=== PATIENT | female | born 1965 | race Caucasian/White ===

== ENCOUNTER 2016-11-01 22:48 | Inpatient (IN) | payer MEDICARE, MEDICAID ==
[~2016-11-01] VITALS: Ht 177.8 cm; Wt 81.2 kg
[~2016-11-01 22:48] MED LIST: ALBU1AER INH; ATEN100T7 PO; DICL50 PO; LANTUSP SQ; ORPH100T PO; PROM25TA5 PO; SPIRCAP INH; SYMB80AE INH; VALI10TA PO
[2016-11-01 22:50] VITALS: O2SAT 92
[2016-11-01 22:56] VITALS: BP 108/71; PULSE 85; RESP 14; TEMP 101.1; O2SAT 98
[2016-11-01] MEDS ORDERED: metroNIDAZOLE 500 MG INJ 100 ML IV STA (23:09)
[2016-11-01] MEDS ORDERED: SODIUM CHLOR 0.9% 1000 ML INJ 700 ML IV ONE (23:09)
[2016-11-01] MEDS ORDERED: AZTREONAM INJ 2,000 MG in SODIUM CHLORIDE 0.9% INJ 100 ML IV STA (23:09)
[2016-11-01] MEDS ORDERED: VANCOMYCIN INJ 1,000 MG in SODIUM CHLOR 0.9% 250 ML INJ 250 ML IV STA (23:09)
[2016-11-01] MEDS ORDERED: SODIUM CHLOR 0.9% 1000 ML INJ 1,000 ML IV ONE ×2 (23:09)
[2016-11-01 23:12] LABS: BLOOD GAS BASE EXCESS 3.7 mmol/L (-2-2); BLOOD GAS CARBOXYHEMOGLOBIN 2.7 % (0-4); BLOOD GAS HCO3 29 mmol/L (22-26); BLOOD GAS METHEMOGLOBIN 0.8 % (0-2); BLOOD GAS O2 HGB SATURATION 95 % (90-100); BLOOD GAS OXYGEN CONTENT 18.5 Vol % (12.0-20.0); BLOOD GAS PCO2 60 mmHg (38-42); BLOOD GAS PO2 112 mmHG (61-120); BLOOD GAS TOTAL HGB 13.8 G/DL (12.0-16.0); CRITICAL VALUE YES; TEMP CORR TO 98.6
[2016-11-01 23:13] LABS: DRAW SITE LT RADIAL; FIO2 100 %; LITER FLOW 15 L/M; NUMBER OF ARTERIAL PUNCTURES 1; OXYGEN DEVICE NONE REBREATHER; STAT YES; ULNAR PULSE PRESENT
[2016-11-01] MEDS ORDERED: methylPREDNISolone SOD SUCC 125 MG/2 ML VIAL IV PUSH ONE (23:15)
--- NOTE | 2016-11-01 23:18 | PD ---
HPI Chief Complaint: Altered Mental Status Time Seen by Provider: 23:03 Travel History International Travel<30 days: No Contact w/Intl Traveler<30days: No History of Present Illness HPI The patient is a 50 year old female who presents to the [facility] emergency department with a history of reportedly collapsing at work some time yesterday afternoon. The patient proceeded to come home at 4:30 PM and has been lying on the couch since then according to ambulance services. The patient 's called when he had difficulty awakening her. The patient was noted to have a blood sugar of 145. The patient had a decreased level of consciousness although she was responsive to painful stimulation and loudly calling her name. The patient quickly falls back to sleep. According to ambulance services the patient was oriented 2 with a GCS of 13 prior to arrival. The patient was noted to have a left bundle branch block which the patient does have a history of. The patient was noted to have an O2 saturation on room air of 72%. The patient was noted to have a systolic blood pressure of 76. The patient is noted to have a productive sounding cough. Prior to arrival the patient had IV access obtained and was given 800 mL of normal saline. Her systolic blood pressure then went up to 112. Patient was placed on a nonrebreather mask and her O2 saturation on arrival is 98% on nonrebreather. The patient is unable to provide any other significant history. She is not able to answer questions regarding review of systems. [facility] Past Medical History Narrative Medical The patient's past medical history is obtained from reviewing the electronic medical record and consists of a history of diabetes, COPD, 2 prior myocardial infarctions, history of tobacco use, history of hypertension, obesity, dyslipidemia, bipolar disorder, chronic back pain. Bipolar Disorder: Yes Cardiac Catheterization: Yes (x2) Cardiovascular Problems: Yes (HTN, ID) COPD: Yes Cerebrovascular Accident: Yes Diabetes: Yes Diminished Hearing: No Hypertension: Yes Psychiatric: Yes Respiratory: Yes (COPD) Tetanus Vaccination: Unknown ?: Not Menopausal: No : 4 Para: 2 Miscarriage: 1 Past Surgical History Narrative Surgical The patient's past surgical history is significant for an appendectomy, tonsillectomy, abdominal laparoscopy, facial reconstruction Social History Alcohol Use: No Tobacco Use: Yes (1 ppd) Substance Use: No Allergies-Medications (Allergen,Severity, Reaction): Coded Allergies: Baclofen (Verified Allergy, Severe, HIVES, BLISTERS, VOMITING, 11/01/16) Codeine (Verified Allergy, Severe, 11/01/16) Iodinated Contrast Media (Verified Allergy, Severe, 11/01/16) Tramadol (Verified Allergy, Severe, Hives, BLISTERS, 11/01/16) Iodine (Verified Allergy, Unknown, UNKNOWN REACTION, 11/01/16) Penicillin (Verified Allergy, Unknown, UNKNOWN REACTION, 11/01/16) Reported Meds & Prescriptions Reported Meds & Active Scripts Active Active Prescriptions or Reported Medications Unobtainable Review of Systems ROS Limitations: Clinical Condition, Poor Historian Except as stated in HPI: all other systems reviewed are Neg Respiratory: Positive: Cough Neurologic: Positive: Weakness (generalized weakness), Change in Mentation Physical Exam Narrative General: The patient is a well-developed well-nourished female, decreased level of consciousness on arrival, drowsy-appearing, arousable with loudly calling her name or any type of painful stimulation. Head and Neck exam: Head is normocephalic atraumatic. Eyes: Extra Reglan motion testing is unable to be accomplished in this patient that is not cooperative. Pupils are equal round and reactive to light. Nose: Midline septum with pink mucous membranes Mouth: Dentition unremarkable. Moist mucus membranes. Posterior oropharynx is not erythematous. No tonsillar hypertrophy. Uvula midline. Airway patent. Neck: No palpable lymphadenopathy. No nuchal rigidity. No thyromegaly. Cardiovascular: Sinus tachycardia in the low 100s without murmurs, gallops, or rubs. No pulse deficit to the extremities and simultaneous auscultation and palpation of her radial artery. Lungs: Decreased breath sounds in the left lower lung base, no wheezes, rhonchi, or crackles audible. Abdomen: Soft, without tenderness to palpation in all 4 quadrants of the abdomen. No guarding, rebound, or rigidity. Normal bowel sounds are audible. No tenderness on palpation of McBurney's point. Negative Wiley's sign. On examination of the patient's scan the patient is noted on the abdomen, waist band area to have urticaria. Extremities: No clubbing, cyanosis, or edema, except an area of interest, the left upper extremity. According to ambulance services this extremity was dependent while the patient was on the couch over the last greater than 12 hours. 2+ pulses in all 4 extremities. No calf tenderness on palpation. Back: No costovertebral angle tenderness to palpation. Neurologic Exam: This patient spontaneously moves all extremities with generalized weakness, however no focal weakness. The patient is uncooperative with a formal neurologic examination. The patient has no evidence of facial asymmetry. Skin Exam: Urticaria on the abdomen and developing on her arms. The patient is scratching her abdomen. Intact skin that is warm and dry. Data Data Last Documented VS Vital Signs Date Time Temp Pulse Resp B/P Pulse Ox O2 Delivery O2 Flow Rate FiO2 11/02/16 00:45 99.7 92 16 123/71 96 BiPAP 50 11/01/16 23:02 15 Orders Electrocardiogram (11/01/16 23:06) Complete Blood Count With Diff (11/01/16 23:) Comprehensive Metabolic Panel (11/01/16 23:06) Creatine Kinase (Cpk) (11/01/16 23:06) Ckmb (Isoenzyme) Profile (11/01/16 23:) Troponin I (11/01/16 23:) B-Type Natriuretic Peptide (11/01/16 23:06) Prothrombin Time / Inr (Pt) (11/01/16 23:06) Act Partial Throm Time (Ptt) (11/01/16 23:06) Arterial Blood Gas (Abg) (11/01/16 23:06) Blood Culture (11/01/16 23:06) C-Reactive Protein (Crp) (11/01/16 23:06) Lipase (11/01/16 23:06) Urinalysis - C+S If Indicated (11/01/16 23:) Magnesium (Mg) (11/01/16 23:06) Ammonia (11/01/16 23:06) Thyroid Stimulating Hormone (11/01/16 23:06) Chest, Single Ap (11/01/16 23:06) Ct Brain W/O Iv Contrast(Rout) (11/01/16 23:06) Iv Access Insert/Monitor (11/01/16 23:06) Ecg Monitoring (11/01/16 23:06) Oximetry (11/01/16 23:06) Blood Glucose (11/01/16 23:06) Ed Urine Pregnancytest Poc (11/01/16 23:06) Drug Screen, Random Urine (11/01/16 23:06) Alcohol (Ethanol) (11/01/16 23:06) Salicylates (Aspirin) (11/01/16 23:06) Tylenol (Acetaminophen) (11/01/16 23:06) Lactic Acid Sepsis Protocol (11/01/16 23:06) Methylprednisolone So Succ Inj (Solumedr (11/01/16 23:15) Sodium Chlor 0.9% 1000 Ml Inj (Ns 1000 M (11/01/16 23:09) Sodium Chlor 0.9% 1000 Ml Inj (Ns 1000 M (11/01/16 23:09) Sodium Chlor 0.9% 1000 Ml Inj (Ns 1000 M (11/01/16 23:09) Metronidazole 500 Mg Inj (Flagyl 500 Mg (11/01/16 23:09) Vancomycin Inj (Vancomycin Inj) (11/01/16 23:09) Aztreonam Inj (Azactam Inj) (11/01/16 23:09) Sodium Chloride 0.9% Flush (Ns Flush) (11/01/16 23:30) Methylprednisolone So Succ Inj (Solumedr (11/01/16 23:30) Albuterol-Ipratropium Neb (Duoneb Neb) (11/01/16 23:30) Resp Bipap / Cpap Non Invas Vt (11/01/16 23:18) Diphenhydramine Inj (Benadryl Inj) (11/01/16 23:30) Famotidine Inj (Pepcid Inj) (11/01/16 23:30) Epinephrine (1:1000) Inj (Adrenalin (1:1 (11/01/16 23:30) Urinary Catheter Insert/Apply (11/01/16 23:22) Urine Culture (11/01/16 23:10) CKMB (11/01/16 23:10) CKMB% (11/01/16 23:10) Admit Order (Ed Use Only) (11/02/16 01:16) Labs Laboratory Tests Test 11/01/16 11/01/16 22:59 23:10 Blood Gas Puncture Site LT RADIAL Blood Gas Patient Temperature 98.6 Blood Gas HCO3 29 mmol/L Blood Gas Base Excess 3.7 mmol/L Blood Gas Oxygen Saturation 95 % Arterial Blood pH 7.31 Arterial Blood Partial 60 mmHg Pressure CO2 Arterial Blood Partial 112 mmHG Pressure O2 Arterial Blood Oxygen Content 18.5 Vol % Arterial Blood 2.7 % Carboxyhemoglobin Arterial Blood Methemoglobin 0.8 % Blood Gas Hemoglobin 13.8 G/DL Oxygen Delivery Device NONE REBREATHER Blood Gas Liter Flow 15 L/M Blood Gas Inspired Oxygen 100 % Prothrombin Time 10.5 SEC Prothromb Time International 1.0 RATIO Ratio Activated Partial 27.6 SEC Thromboplast Time Lactic Acid Level 0.7 mmol/L Ammonia 23 MCMOL/L Salicylates Level 1.8 MG/DL Urine Opiates Screen POS Urine Barbiturates Screen NEG Urine Amphetamines Screen NEG Urine Benzodiazepines Screen POS Urine Cocaine Screen NEG Urine Cannabinoids Screen NEG White Blood Count 12.9 TH/MM3 Red Blood Count 4.86 MIL/MM3 Hemoglobin 14.4 GM/DL Hematocrit 45.2 % Mean Corpuscular Volume 93.0 FL Mean Corpuscular Hemoglobin 29.7 PG Mean Corpuscular Hemoglobin 31.9 % Concent Red Cell Distribution Width 13.6 % Platelet Count 176 TH/MM3 Mean Platelet Volume 10.6 FL Neutrophils (%) (Auto) 63.1 % Lymphocytes (%) (Auto) 26.1 % Monocytes (%) (Auto) 10.1 % Eosinophils (%) (Auto) 0.1 % Basophils (%) (Auto) 0.6 % Neutrophils # (Auto) 8.1 TH/MM3 Lymphocytes # (Auto) 3.4 TH/MM3 Monocytes # (Auto) 1.3 TH/MM3 Eosinophils # (Auto) 0.0 TH/MM3 Basophils # (Auto) 0.1 TH/MM3 CBC Comment DIFF FINAL Differential Comment Urine Color YELLOW Urine Turbidity HAZY Urine pH 5.5 Urine Specific [place] 1.021 Urine Protein 30 mg/dL Urine Glucose (UA) NEG mg/dL Urine Ketones NEG mg/dL Urine Occult Blood MOD Urine Nitrite NEG Urine Bilirubin NEG Urine Urobilinogen 2.0 MG/DL Urine Leukocyte Esterase LARGE Urine RBC 8 /hpf Urine WBC 56 /hpf Urine WBC Clumps OCC Urine Squamous Epithelial 5 /hpf Cells Urine Transitional Epithelial 1 /hpf Cells Urine Renal Epithelial Cells 1 /hpf Urine Bacteria MANY /hpf Urine Hyaline Casts 65 /lpf Urine Mucus MANY /lpf Microscopic Urinalysis Comment CULTURE INDICATED Sodium Level 144 MEQ/L Potassium Level 3.1 MEQ/L Chloride Level 105 MEQ/L Carbon Dioxide Level 30.6 MEQ/L Anion Gap 8 MEQ/L Blood Urea Nitrogen 43 MG/DL Creatinine 3.24 MG/DL Estimat Glomerular Filtration 15 ML/MIN Rate Random Glucose 107 MG/DL Calcium Level 9.0 MG/DL Magnesium Level 2.6 MG/DL Total Bilirubin 0.5 MG/DL Aspartate Amino Transf 129 U/L (AST/SGOT) Alanine Aminotransferase 30 U/L (ALT/SGPT) Alkaline Phosphatase 62 U/L Total Creatine Kinase 4453 U/L Creatine Kinase MB 10.9 NG/ML Creatine Kinase MB % 0.2 % Troponin I 0.09 NG/ML C-Reactive Protein 2.61 MG/DL B-Type Natriuretic Peptide 109 PG/ML Total Protein 7.2 GM/DL Albumin 3.3 GM/DL Lipase 65 U/L Thyroid Stimulating Hormone 0.480 uIU/ML 3rd Gen Acetaminophen Level LESS THAN 2.0 MCG/ML Ethyl Alcohol Level LESS THAN 3 MG/DL MDM Medical Decision Making Medical Screen Exam Complete: Yes Emergency Medical Condition: Yes Medical Record Reviewed: Yes Interpretation(s) Last Impressions Chest X-Ray 11/01/16 0698 Signed Impressions: Service Date/Time: Tuesday, November 01, 2016 23:45 - CONCLUSION: Left lower lobe pneumonia. Benita Woods MD Differential Diagnosis Infectious process leading to altered mentation such as pneumonia, versus urinary tract infection, versus alcohol intoxication, versus other substance intoxication, versus anaphylaxis, versus metabolic encephalopathy. Narrative Course During the course of the patients emergency department visit, the patients history, examination, and differential diagnosis were reviewed with the patient. The patient had 2 large-bore IVs placed in bilateral upper extremities. She was placed on a computer game programmer with oximetry and blood pressure monitoring. A Sullivan catheter was placed to gravity. The patient was started on normal saline IV fluids. The patient had an EKG done on arrival. The patient's EKG shows a heart rate of 85, QRS duration 168 ms, QTC 453 ms with evidence of a left bundle branch block which the patient has a history of previously. The patient was initially provided DuoNeb nebs 3. The patient was placed on BiPAP. The patient was given epinephrine 0.3 mg IM 1 for suspected allergic reaction that may be anaphylaxis that she was hypotensive prior to arrival. The patient was given Benadryl 25 mg IV. The patient was more easily arousable with treatment progression. Sullivan catheter was placed to gravity and was temperature sensing. The patient was noted to have a temp of 101.1. Will be given Tylenol [place]. The patients laboratory studies were reviewed and remarkable for a white count of 12.9, hemoglobin 14.4, platelets 176 with 10.1 monocytes, CMP is remarkable for potassium of 3.1 which will be supplemented, BUN 43, creatinine 3.24, glucose 107, magnesium 2.6, AST 129, CPK 4453 with an MB percent of 0.2, troponin I 0.09 which is likely related to her acute renal failure, BNP 109, lipase 65, TSH 0.48, PT PTT within normal limits. Urinalysis shows large leukocyte esterase 8 rbc's wbc's 56 occasional clumps 5 squamous epithelial cells many bacteria, culture indicated. Urine drug screen is positive for opiates and benzodiazepines, salicylate 1.8, acetaminophen less than 2, alcohol less than 3. An ABG prior to placement on BiPAP was noted to show a pH of 7.31 , PCO2 60, PO2 112, bicarbonate 29, base excess 3.7. Radiology studies were reviewed and remarkable for a chest x-ray that shows a left lower lobe pneumonia. The patients results were discussed with the patient, including the plan of care. I explained that further testing and/ or monitoring is indicated based on the patients history, examination, and/ or laboratory findings. Therefore, I recommended admission for additional evaluation. The patient expressed understanding and was agreeable with this plan. The patient was admitted to the hospital in critical condition and sent to a bed under the care of the back tender insulation board service. Critical Care Narrative Aggregate critical care time was 40 minutes. Time to perform other separately billable procedures was not included in the critical care time. My time did not include minutes spent treating any other patients simultaneously or on activities that did not directly contribute to the patient's treatment. The services I provided to this patient were to treat and/or prevent clinically significant deterioration that could result in: Respiratory failure requiring intubation, versus cardiovascular collapse I provided critical care services requiring my management, as noted below: Chart data review, documentation time, medication orders and management, vital sign assessments/reviewing monitor data, ordering and reviewing lab tests, ordering and interpreting/reviewing x-rays and diagnostic studies, care of the patient and discussion of the patient with the admitting physicians. Sepsis Criteria SIRS Criteria (2 or more): Temp > 100.9 or < 96.8, WBC > 77624, < 4000 or > 10 % bands Physician Communication Physician Communication The patient's case was discussed with Dr. Galeano who did agree to admit the patient for further evaluation and treatment at this time to the intensive care unit. Diagnosis Primary Impression: Rhabdomyolysis Qualified Code: M62.82 - Non-traumatic rhabdomyolysis Additional Impressions: Altered mental status Qualified Code: R40.0 - Somnolence Urinary tract infection Qualified Code: N39.0 - Urinary tract infection without hematuria, site unspecified Acute renal failure Qualified Code: N17.9 - Acute renal failure, unspecified acute renal failure type Admitting Information Admitting Physician Requests: Admit Scripts Unable to Obtain Active Prescriptions or Reported Meds Nadine Andrea MD Nov 01, 2016 23:18
[2016-11-01] MEDS ORDERED: SODIUM CHLORIDE 0.9% FLUSH 10 ML FLUSH IVF PRN (23:30)
[2016-11-01] MEDS ORDERED: EPINEPHrine HCL (1:1000) 1 MG/ML VIAL IM ONE (23:30)
[2016-11-01] MEDS ORDERED: diphenhydrAMINE HCL 50 MG/ML VIAL IV PUSH ONE (23:30)
[2016-11-01] MEDS ORDERED: methylPREDNISolone SOD SUCC 125 MG/2 ML VIAL IVP ONE (23:30)
[2016-11-01] MEDS ORDERED: FAMOTIDINE INJ 20 MG in SODIUM CHLORIDE 0.9% INJ 98 ML IV SCH (23:30)
[2016-11-01 23:40] LABS: AUTOMATED NEUTROPHIL # 8.1 TH/MM3 (1.8-7.7); BASOPHIL # 0.1 TH/MM3 (0-0.2); BASOPHIL % 0.6 % (0.0-2.0); EOSINOPHIL % 0.1 % (0.0-4.0); HEMATOCRIT 45.2 % (35.0-46.0); HEMO FLAGS DIFF FINAL; LYMPH % 26.1 % (9.0-44.0); LYMPHOCYTE # 3.4 TH/MM3 (1.0-4.8); MEAN CORPUSCULAR HEMOGLOBIN 29.7 PG (27.0-34.0); MEAN CORPUSCULAR HGB CONC 31.9 % (32.0-36.0); MONO % 10.1 % (0.0-8.0); NEUT % 63.1 % (16.0-70.0); PLATELET COUNT 176 TH/MM3 (150-450); RED BLOOD COUNT 4.86 MIL/MM3 (4.00-5.30); RED CELL DISTRIBUTION WIDTH 13.6 % (11.6-17.2); WHITE BLOOD COUNT 12.9 TH/MM3 (4.0-11.0)
[2016-11-01 23:44] LABS: APTT (PATIENT) 27.6 SEC (24.3-30.1); PROTHROMBIN TIME - PATIENT 10.5 SEC (9.8-11.6)
[2016-11-01 23:48] LABS: AMPHETAMINE, URINE NEG (NEG); BARBITURATES, URINE NEG (NEG); COCAINE, URINE NEG (NEG)
[2016-11-01 23:51] LABS: BACTERIA, URINE MANY /hpf; BLOOD, URINE MOD (NEG); COMMENT (UR) CULTURE INDICATED; CULTURE IF INDICATED CULTURE INDICATED; GLUCOSE,URINE NEG (NEG); HYALINE CAST, URINE 65 /lpf (RARE); KETONE, URINE NEG (NEG); MUCUS URINE MANY /lpf (OCC); NITRITE,URINE NEG (NEG); PH, URINE 5.5 (5.0-8.5); RENAL EPITHELIAL CELLS 1 /hpf; SQUAMOUS EPITHELIAL CELL URINE 5 /hpf (0-5); TRANSITIONAL EPI CELLS, URINE 1 /hpf; URINE COLOR YELLOW (YELLW/STRAW)
[2016-11-01 23:53] LABS: ANION GAP 8 MEQ/L (5-15); AST (GOT) 129 U/L (15-37); BICARBONATE 30.6 MEQ/L (21.0-32.0); BLOOD UREA NITROGEN 43 MG/DL (7-18); CHLORIDE 105 MEQ/L (98-107); MAGNESIUM 2.6 MG/DL (1.5-2.5); POTASSIUM 3.1 MEQ/L (3.5-5.1); SODIUM (NA) 144 MEQ/L (136-145)
--- NOTE | 2016-11-01 23:53 | RADRPT ---
EXAM DATE/TIME: 11/01/2016 23:45 [facility] COMPARISON: CHEST SINGLE AP, February 09, 2016, 22:37. INDICATIONS : Short of breath. MEDICAL HISTORY : None. SURGICAL HISTORY : None. ENCOUNTER: Initial ACUITY: 1 day PAIN SCORE: 0/10 LOCATION: Bilateral chest FINDINGS: There is dense consolidation left lower lobe not present previously. Heart and mediastinum are unrema rkable for technique. CONCLUSION: Left lower lobe pneumonia. Benita Woods MD on November 01, 2016 at 23:51 Board Certified Radiologist. This report was verified electronically.
[2016-11-02] VITALS (23 sets, daily range): BP systolic 94–163; BP diastolic 57–92; PULSE 71–101; RESP 13–24; TEMP 97.7–99.7; O2SAT 92–100
[2016-11-02 00:07] LABS: ACETAMINOPHEN LESS THAN 2.0 MCG/ML (10.0-30.0); ALKALINE PHOSPHATASE 62 U/L (45-117); ALT (GPT) 30 U/L (10-53); CREATINE KINASE 4453 U/L (26-192); GLOMERULAR FILTRATION RATE 15 ML/MIN (>89); TOTAL BILIRUBIN ADULT 0.5 MG/DL (0.2-1.0)
[2016-11-02 00:20] LABS: CKMB 10.9 NG/ML (0.5-3.6)
[2016-11-02] MEDS: RESP: ALBUTEROL 2.5 MG/IPRATROPIUM 0.5 MG NEB (SCH) INH ×5 (00:26→20:25)
[2016-11-02] MEDS ORDERED: ACETAMINOPHEN 650 MG SUPP RECTAL ONE (01:30)
[2016-11-02] MEDS ORDERED: POTASSIUM CHLOR 10 MEQ PREMIX 100 ML IV ONE (01:30)
[2016-11-02] MEDS ORDERED: SODIUM CHLORIDE 0.9% FLUSH 10 ML FLUSH PRN (01:45)
[2016-11-02] MEDS ORDERED: MISCELLANEOUS NURSING INFORMATION XX SCH (01:45)
[2016-11-02] MEDS ORDERED: PROCHLORPERAZINE 25 MG SUPP RECTAL PRN (01:45)
[2016-11-02] MEDS ORDERED: ACETAMINOPHEN 325 MG TAB PO PRN (01:45)
[2016-11-02] MEDS ORDERED: RESP: ALBUTEROL 2.5 MG/IPRATROPIUM 0.5 MG NEB (PRN) INH (01:45)
[2016-11-02] MEDS ORDERED: BISACODYL 10 MG SUPP RECTAL PRN (01:45)
[2016-11-02] MEDS ORDERED: SENNOSIDES 8.6 MG TAB PO PRN (01:45)
[2016-11-02] MEDS ORDERED: ONDANSETRON HCL 4 MG/2 ML VIAL IV PRN (01:45)
[2016-11-02] MEDS ORDERED: LACTULOSE SYRUP 20 GM/30 ML CUP PO PRN (01:45)
[2016-11-02] MEDS ORDERED: MAGNESIUM HYDROXIDE SUSP 30 ML CUP PO PRN (01:45)
[2016-11-02] MEDS ORDERED: CHLORHEXIDINE GLUCONATE 2 % 1 PACK (2 CLOTHS) TOP PRN (01:45)
--- NOTE | 2016-11-02 01:45 | HHI.HP ---
HPI Service Critical Care Medicine Primary Care Physician Unknown Admission Diagnosis AMS, Rhabdomyolysis, UTI Diagnosis: Travel History International Travel<30 Days: No Contact w/Intl Traveler <30 Da: No Traveled to Known Affected Are: No History of Present Illness 50 year old female presents with a history of collapsing at work some time yesterday afternoon. The patient proceeded to come home at 4:30 PM and has been lying on the couch since then according to ambulance services. The patient 's called when he had difficulty awakening her. Patient was placed on a nonrebreather mask and her O2 saturation on arrival is 98% on nonrebreather. In the emergency department she was placed on facemask BiPAP due to hypercarbic respiratory failure and she is unable to provide any other significant history. Review of Systems ROS She is not able to answer questions regarding review of systems. Past Family Social History Allergies: Coded Allergies: Baclofen (Verified Allergy, Severe, HIVES, BLISTERS, VOMITING, 11/01/16) Codeine (Verified Allergy, Severe, 11/01/16) Iodinated Contrast Media (Verified Allergy, Severe, 11/01/16) Tramadol (Verified Allergy, Severe, Hives, BLISTERS, 11/01/16) Iodine (Verified Allergy, Unknown, UNKNOWN REACTION, 11/01/16) Penicillin (Verified Allergy, Unknown, UNKNOWN REACTION, 11/01/16) Past Medical History Diabetes mellitus COPD - active smoker Coronary artery disease Tobacco use disorder Hypertension Obesity Dyslipidemia bipolar disorder Chronic back pain Past Surgical History Appendectomy Tonsillectomy Facial reconstruction Abdominal laparoscopy Reported Medications Reported Meds & Active Scripts Active Active Prescriptions or Reported Medications Unobtainable Active Ordered Medications Current Medications Medications (Trade) Dose Ordered Sig/Tana Route PRN Reason Start Time Stop Time Status Last Admin Dose Admin Sodium Chloride 2 ml 2 ml UNSCH PRN IVF FLUSH AFTER USING IV ACCESS 11/01/16 23:30 Famotidine 20 mg/ Sodium Chloride 100 ml @ 4.167 mls/ hr CONTINUOUS IV 11/01/16 23:30 11/02/16 00:26 Sodium Chloride (NS 1000 ml Inj) 1,000 ml @ 125 mls/hr Q8H IV 11/02/16 01:35 11/02/16 01:52 Sodium Chloride (NS Flush) 2 ml UNSCH PRN .XX FLUSH AFTER USING IV ACCESS 11/02/16 01:45 Sodium Chloride (NS Flush) 2 ml BID .XX 11/02/16 09:00 Acetaminophen (Tylenol) 650 mg Q6H PRN PO PAIN 1-10 AND/OR FEVER >101F 11/02/16 01:45 Pantoprazole Sodium (Protonix Inj) 40 mg DAILY IV 11/02/16 09:00 Ondansetron HCl (Zofran Inj) 4 mg Q6H PRN IV NAUSEA OR VOMITING 11/02/16 01:45 Prochlorperazine (Compazine Supp) 25 mg Q12H PRN RECTAL NAUSEA OR VOMITING 11/02/16 01:45 Heparin Sodium (Porcine) (Heparin Inj) 5,000 units Q8H SQ 11/02/16 01:45 Miscellaneous Information 1 Q361D XX 11/02/16 01:45 Chlorhexidine Gluconate (Chlorhexidine 2% Cloth) 3 pack Taper DAILY@04 TOP 11/02/16 04:00 10/29/17 03:59 Chlorhexidine Gluconate (Chlorhexidine 2% Cloth) 3 pack UNSCH PRN TOP HYGIENIC CARE 11/02/16 01:45 Senna/Docusate Sodium (Kalani-Colace) 1 tab BID PO 11/02/16 09:00 Magnesium Hydroxide (Milk Of Magnesia Liq) 30 ml Q12H PRN PO MILD - MODERATE CONSTIPATION 11/02/16 01:45 Sennosides (Senokot) 17.2 mg Q12H PRN PO MODERATE - SEVERE CONSTIPATION 11/02/16 01:45 Bisacodyl (Dulcolax Supp) 10 mg DAILY PRN RECTAL SEVERE CONSITIPATION 11/02/16 01:45 Lactulose 30 ml 30 ml DAILY PRN PO SEVERE CONSITIPATION 11/02/16 01:45 Azithromycin 500 mg/Sodium Chloride 250 ml @ 250 mls/hr Q24H IV 11/02/16 03:00 Aztreonam/Sodium Chloride (Azactam Inj/NS Inj) 100 ml @ 200 mls/hr Q8H IV 11/02/16 10:00 Methylprednisolone Sodium Succinate (SoluMEDROL INJ) 40 mg Q12H IV 11/02/16 12:00 Family History Noncontributory Social History Smokes one pack per day Denies alcohol or illicit drug abuse Physical Exam Vital Signs Vital Signs Date Time Temp Pulse Resp B/P Pulse Ox O2 Delivery O2 Flow Rate FiO2 11/02/16 00:45 99.7 92 16 123/71 96 BiPAP 50 11/02/16 00:30 101 16 149/75 98 BiPAP 50 11/01/16 23:23 BiPAP 50 11/01/16 23:02 98 Non-Rebreather 15 11/01/16 22:56 101.1 85 14 108/71 98 11/01/16 22:50 92 50 11/01/16 22:50 92 BiPAP Physical Exam GENERAL: Well-nourished, well-developed patient. On the facemask BiPAP SKIN: Warm and dry. HEAD: Normocephalic. EYES: No scleral icterus. No injection or drainage. NECK: Supple, trachea midline. No JVD or lymphadenopathy. CARDIOVASCULAR: Regular rate and rhythm without murmurs, gallops, or rubs. RESPIRATORY: Breath sounds equal bilaterally. No accessory muscle use. GASTROINTESTINAL: Abdomen soft, non-tender, nondistended. MUSCULOSKELETAL: No cyanosis, or edema. BACK: Nontender without obvious deformity. No CVA tenderness. EXTREMITIES: No clubbing cyanosis or edema Laboratory Laboratory Tests Test 11/01/16 11/01/16 22:59 23:10 Blood Gas Puncture Site LT RADIAL Blood Gas Patient Temperature 98.6 Blood Gas HCO3 29 Blood Gas Base Excess 3.7 Blood Gas Oxygen Saturation 95 Arterial Blood pH 7.31 Arterial Blood Partial 60 Pressure CO2 Arterial Blood Partial 112 Pressure O2 Arterial Blood Oxygen Content 18.5 Arterial Blood 2.7 Carboxyhemoglobin Arterial Blood Methemoglobin 0.8 Blood Gas Hemoglobin 13.8 Oxygen Delivery Device NONE REBREATHER Blood Gas Liter Flow 15 Blood Gas Inspired Oxygen 100 Prothrombin Time 10.5 Prothromb Time International 1.0 Ratio Activated Partial 27.6 Thromboplast Time Lactic Acid Level 0.7 Ammonia 23 Salicylates Level 1.8 Urine Opiates Screen POS Urine Barbiturates Screen NEG Urine Amphetamines Screen NEG Urine Benzodiazepines Screen POS Urine Cocaine Screen NEG Urine Cannabinoids Screen NEG White Blood Count 12.9 Red Blood Count 4.86 Hemoglobin 14.4 Hematocrit 45.2 Mean Corpuscular Volume 93.0 Mean Corpuscular Hemoglobin 29.7 Mean Corpuscular Hemoglobin 31.9 Concent Red Cell Distribution Width 13.6 Platelet Count 176 Mean Platelet Volume 10.6 Neutrophils (%) (Auto) 63.1 Lymphocytes (%) (Auto) 26.1 Monocytes (%) (Auto) 10.1 Eosinophils (%) (Auto) 0.1 Basophils (%) (Auto) 0.6 Neutrophils # (Auto) 8.1 Lymphocytes # (Auto) 3.4 Monocytes # (Auto) 1.3 Eosinophils # (Auto) 0.0 Basophils # (Auto) 0.1 CBC Comment DIFF FINAL Differential Comment Urine Color YELLOW Urine Turbidity HAZY Urine pH 5.5 Urine Specific [place] 1.021 Urine Protein 30 Urine Glucose (UA) NEG Urine Ketones NEG Urine Occult Blood MOD Urine Nitrite NEG Urine Bilirubin NEG Urine Urobilinogen 2.0 Urine Leukocyte Esterase LARGE Urine RBC 8 Urine WBC 56 Urine WBC Clumps OCC Urine Squamous Epithelial 5 Cells Urine Transitional Epithelial 1 Cells Urine Renal Epithelial Cells 1 Urine Bacteria MANY Urine Hyaline Casts 65 Urine Mucus MANY Microscopic Urinalysis Comment CULTURE INDICATED Sodium Level 144 Potassium Level 3.1 Chloride Level 105 Carbon Dioxide Level 30.6 Anion Gap 8 Blood Urea Nitrogen 43 Creatinine 3.24 Estimat Glomerular Filtration 15 Rate Random Glucose 107 Calcium Level 9.0 Magnesium Level 2.6 Total Bilirubin 0.5 Aspartate Amino Transf 129 (AST/SGOT) Alanine Aminotransferase 30 (ALT/SGPT) Alkaline Phosphatase 62 Total Creatine Kinase 4453 Creatine Kinase MB 10.9 Creatine Kinase MB % 0.2 Troponin I 0.09 C-Reactive Protein 2.61 B-Type Natriuretic Peptide 109 Total Protein 7.2 Albumin 3.3 Lipase 65 Thyroid Stimulating Hormone 0.480 3rd Gen Acetaminophen Level LESS THAN 2.0 Ethyl Alcohol Level LESS THAN 3 Date/Time Procedure Status Source Growth 11/01/16 23:10 Urine Culture Received Urine Random Urine Pending 11/01/16 23:10 Aerobic Blood Culture Received Blood Peripheral Pending 11/01/16 23:10 Anaerobic Blood Culture Received Blood Peripheral Pending Result Diagram: 11/01/16 2310 11/01/16 2310 Imaging Last 24 hours Impressions Chest X-Ray 11/01/166 Signed Impressions: Service Date/Time: Tuesday, November 01, 2016 23:45 - CONCLUSION: Left lower lobe pneumonia. Benita Woods MD Assessment and Plan Assessment and Plan Respiratory failure - Hypercarbic respiratory acidosis - Continue BiPAP - Steroids and antibiotics - Pulmonary toileting - DuoNeb scheduled and when necessary Community-acquired pneumonia - Broad-spectrum antibiotic - Follow-up urine antigens - Follow-up cultures COPD exacerbation - IV steroids - IV antibiotics - DuoNeb's when necessary scheduled Diabetes mellitus - Insulin sliding scale DVT GI prophylaxis - Subcutaneous heparin - IV pantoprazole Critical Care: The total critical care time was 35 minutes. Time to perform other separately billable procedures was not included in the critical care time. Hugo Galeano MD Nov 02, 2016 01:44
[2016-11-02] MEDS: SODIUM CHLOR 0.9% 1000 ML INJ 1,000 ML IV SCH ×4 (01:52→21:19)
[2016-11-02 02:16] LABS: BLOOD GAS BASE EXCESS 2.9 mmol/L (-2-2); BLOOD GAS HCO3 28 mmol/L (22-26); BLOOD GAS METHEMOGLOBIN 0.3 % (0-2); BLOOD GAS O2 HGB SATURATION 98 % (90-100); BLOOD GAS OXYGEN CONTENT 15.6 Vol % (12.0-20.0); BLOOD GAS PCO2 48 mmHg (38-42); BLOOD GAS PO2 172 mmHG (61-120); BLOOD GAS TOTAL HGB 11.1 G/DL (12.0-16.0); CRITICAL VALUE NO; FIO2 50 %; OXYGEN DEVICE BiPAP; TEMP CORR TO 98.6; VENT SETTINGS IPAP15 / EPAP 5
[2016-11-02 02:17] LABS: DRAW SITE RT BRACHIAL; NUMBER OF ARTERIAL PUNCTURES 1; STAT YES
[2016-11-02] MEDS: CHLORHEXIDINE GLUCONATE 2 % 1 PACK (2 CLOTHS) TOP SCH (04:00)
[2016-11-02] MEDS: HEPARIN SODIUM - SQ 10,000 UNITS/ML VIAL SQ SCH ×3 (04:18→17:45)
[2016-11-02] MEDS: AZITHROMYCIN INJ 500 MG in SODIUM CHLOR 0.9% 250 ML INJ 250 ML IV SCH (04:18)
--- NOTE | 2016-11-02 05:27 | RADRPT ---
EXAM DATE/TIME: 11/02/2016 05:17 [facility] COMPARISON: CT BRAIN W/O CONTRAST, April 09, 2014, 2:23. INDICATIONS : Altered mental status. RADIATION DOSE: 40.82 CTDIvol (mGy) MEDICAL HISTORY : Myocardial infarction. Chronic obstructive pulmonary disease. Hypertension.CVA. SURGICAL HISTORY : None. ENCOUNTER: Initial ACUITY: 1 day PAIN SCALE: Non-responsive LOCATION: cranial TECHNIQUE: Multiple contiguous axial images were obtained of the head. Using automated exposure control and adj ustment of the mA and/or kV according to patient size, radiation dose was kept as low as reasonably a chievable to obtain optimal diagnostic quality images. FINDINGS: There is no evidence for intracranial hemorrhage, mass effect, mass lesions, edema, or extra-axial fl uid collections. The visualized bony structures appear intact. The ventricles are normal size for t he patient's age. There are no signs of acute infarction for technique. There is a mucus retention c yst in the left maxillary sinus. CONCLUSION: Unremarkable study. Benita Woods MD on November 02, 2016 at 5:25 Board Certified Radiologist. This report was verified electronically.
[2016-11-02 07:55] LABS: CKMB 14.8 NG/ML (0.5-3.6)
--- NOTE | 2016-11-02 07:55 | EKG ---
Date Performed: 11/01/2016 Time Performed: 23:06:42 PTAGE: 50 years EKG: Sinus rhythm WITH FIRST DEGREE AV BLOCK LEFT bundle branch block NO PREVIOUS TRACING DOCTOR: Parminder Hernandez Interpretating Date/Time 11/02/2016 07:54:00
[2016-11-02] MEDS ORDERED: AZTREONAM INJ 1,000 MG in SODIUM CHLORIDE 0.9% INJ 100 ML IV SCH (08:30)
[2016-11-02] MEDS: SODIUM CHLORIDE 0.9% FLUSH 10 ML FLUSH SCH ×2 (09:00→21:20)
[2016-11-02] MEDS: INSULIN NovoLIN REGULAR SUPPLEMENTAL SCALE SQ SCH ×3 (10:15→23:44)
[2016-11-02] MEDS ORDERED: DEXTROSE 50% IN WATER 50 ML VIAL(D50) IV PRN (10:15)
[2016-11-02] MEDS ORDERED: GLUCAGON 1 MG/ML VIAL OTHER PRN (10:15)
[2016-11-02 10:35] LABS: AUTOMATED NEUTROPHIL # 9.5 TH/MM3 (1.8-7.7); BASOPHIL % 0.3 % (0.0-2.0); HEMO FLAGS DIFF FINAL; LYMPH % 5.6 % (9.0-44.0); LYMPHOCYTE # 0.6 TH/MM3 (1.0-4.8); MEAN CELL VOLUME 93.1 FL (80.0-100.0); MEAN CORPUSCULAR HEMOGLOBIN 29.9 PG (27.0-34.0); MEAN CORPUSCULAR HGB CONC 32.1 % (32.0-36.0); MONO % 3.6 % (0.0-8.0); NEUT % 90.5 % (16.0-70.0); PLATELET COUNT 141 TH/MM3 (150-450); RED BLOOD COUNT 4.51 MIL/MM3 (4.00-5.30); RED CELL DISTRIBUTION WIDTH 13.4 % (11.6-17.2); WHITE BLOOD COUNT 10.5 TH/MM3 (4.0-11.0)
[2016-11-02 10:59] LABS: ALKALINE PHOSPHATASE 56 U/L (45-117); ALT (GPT) 37 U/L (10-53); ANION GAP 8 MEQ/L (5-15); AST (GOT) 164 U/L (15-37); BICARBONATE 26.4 MEQ/L (21.0-32.0); BLOOD UREA NITROGEN 34 MG/DL (7-18); CHLORIDE 111 MEQ/L (98-107); GLOMERULAR FILTRATION RATE 31 ML/MIN (>89); POTASSIUM 3.5 MEQ/L (3.5-5.1); SODIUM (NA) 145 MEQ/L (136-145); TOTAL BILIRUBIN ADULT 0.5 MG/DL (0.2-1.0)
[2016-11-02] MEDS: methylPREDNISolone SOD SUCC 40 MG/1 ML VIAL IV SCH ×2 (12:00→23:45)
[2016-11-02] MEDS: AZTREONAM INJ 1,000 MG in SODIUM CHLORIDE 0.9% INJ 100 ML IV SCH ×2 (12:27→18:00)
[2016-11-02] MEDS: DOCUSATE SODIUM 50 MG/SENNA 8.6 MG TAB PO SCH ×2 (12:28→21:19)
[2016-11-02] MEDS: PANTOPRAZOLE SODIUM 40 MG VIAL IV SCH (12:28)
--- NOTE | 2016-11-02 20:57 | RADRPT ---
EXAM DATE/TIME: 11/02/2016 19:54 [facility] COMPARISON: CT ABDOMEN & PELVIS W/O CONTRAST, July 06, 2015, 22:23. INDICATIONS : Increased lab values. MEDICAL HISTORY : Myocardial infarction. Hypertension. Chronic obstructive pulmonary disease. Cerebrovascular accident. . Diabetes. Bipolar disorder. SURGICAL HISTORY : Cardiac catheterization. Back and neck surgery. ENCOUNTER: Initial ACUITY: 1 day PAIN SCORE: 2/10 LOCATION: Abdomen. MEASUREMENTS: LIVER: 14.5 cm length COMMON DUCT: 7 mm RIGHT KIDNEY: 10.9 x 5.2 x 4.8 cm SPLEEN: 14.7 cm length FINDINGS: LIVER: Normal echotexture without focal lesion or ductal dilatation. COMMON DUCT: No intraluminal mass or stone visualized. GALLBLADDER: Contains no stones, demonstrates no wall thickening or pericholecystic fluid. PANCREAS: The visualized portions are within normal limits. RIGHT KIDNEY: No hydronephrosis, stone or mass. SPLEEN: No focal lesion. CONCLUSION: Mildly enlarged spleen, nonspecific. Otherwise within normal limits. The enlargement and fatty infilt ration of the liver seen on the prior study appears to have result. Germán Cancino MD on November 02, 2016 at 20:53 Board Certified Radiologist. This report was verified electronically.
[2016-11-02] MEDS: DEXMEDETOMIDINE 200 MCG in NS 50 ML IV SCH ×2 (21:19→23:52)
[2016-11-03] VITALS (14 sets, daily range): BP systolic 107–170; BP diastolic 70–84; PULSE 65–111; RESP 17–23; TEMP 97.4–98.5; O2SAT 94–100
[2016-11-03] MEDS: AZTREONAM INJ 1,000 MG in SODIUM CHLORIDE 0.9% INJ 100 ML IV SCH (02:56)
[2016-11-03] MEDS: HEPARIN SODIUM - SQ 10,000 UNITS/ML VIAL SQ SCH ×3 (02:56→16:51)
[2016-11-03] MEDS: AZITHROMYCIN INJ 500 MG in SODIUM CHLOR 0.9% 250 ML INJ 250 ML IV SCH (02:57)
[2016-11-03] MEDS: DEXMEDETOMIDINE 200 MCG in NS 50 ML IV SCH ×5 (03:02→22:44)
[2016-11-03] MEDS: RESP: ALBUTEROL 2.5 MG/IPRATROPIUM 0.5 MG NEB (SCH) INH ×2 (03:33→20:44)
[2016-11-03] MEDS: CHLORHEXIDINE GLUCONATE 2 % 1 PACK (2 CLOTHS) TOP SCH ×2 (04:28→19:39)
[2016-11-03] MEDS: INSULIN NovoLIN REGULAR SUPPLEMENTAL SCALE SQ SCH ×4 (04:29→22:15)
[2016-11-03 04:41] LABS: AUTOMATED NEUTROPHIL # 10.3 TH/MM3 (1.8-7.7); BASOPHIL % 0.1 % (0.0-2.0); HEMATOCRIT 42.3 % (35.0-46.0); HEMO FLAGS DIFF FINAL; LYMPH % 5.9 % (9.0-44.0); LYMPHOCYTE # 0.7 TH/MM3 (1.0-4.8); MEAN CELL VOLUME 90.9 FL (80.0-100.0); MEAN CORPUSCULAR HEMOGLOBIN 29.4 PG (27.0-34.0); MEAN CORPUSCULAR HGB CONC 32.4 % (32.0-36.0); PLATELET COUNT 146 TH/MM3 (150-450); RED BLOOD COUNT 4.66 MIL/MM3 (4.00-5.30); RED CELL DISTRIBUTION WIDTH 13.2 % (11.6-17.2); WHITE BLOOD COUNT 11.3 TH/MM3 (4.0-11.0)
[2016-11-03 05:24] LABS: ALKALINE PHOSPHATASE 56 U/L (45-117); ALT (GPT) 50 U/L (10-53); ANION GAP 7 MEQ/L (5-15); AST (GOT) 175 U/L (15-37); BICARBONATE 25.3 MEQ/L (21.0-32.0); BLOOD UREA NITROGEN 24 MG/DL (7-18); CHLORIDE 110 MEQ/L (98-107); GLOMERULAR FILTRATION RATE 73 ML/MIN (>89); POTASSIUM 3.7 MEQ/L (3.5-5.1); SODIUM (NA) 142 MEQ/L (136-145); TOTAL BILIRUBIN ADULT 0.3 MG/DL (0.2-1.0)
[2016-11-03] MEDS ORDERED: LORazepam 2 MG/ML VIAL ONE (07:20)
[2016-11-03] MEDS ORDERED: LORazepam 2 MG/ML VIAL IV PUSH PRN (08:15)
[2016-11-03] MEDS ORDERED: HALOPERIDOL LACTATE 5 MG/ML AMP IV PUSH ONE (08:15)
[2016-11-03] MEDS: SODIUM CHLORIDE 0.9% FLUSH 10 ML FLUSH SCH ×2 (09:00→19:28)
[2016-11-03] MEDS: SODIUM CHLOR 0.9% 1000 ML INJ 1,000 ML IV SCH ×3 (09:35→22:44)
[2016-11-03] MEDS: AZTREONAM INJ 2,000 MG in SODIUM CHLORIDE 0.9% INJ 100 ML IV SCH ×2 (11:23→16:52)
[2016-11-03] MEDS: PANTOPRAZOLE SODIUM 40 MG VIAL IV SCH (11:24)
[2016-11-03] MEDS: DOCUSATE SODIUM 50 MG/SENNA 8.6 MG TAB PO SCH ×2 (11:24→19:28)
[2016-11-03 12:56] LABS: CKMB 11.3 NG/ML (0.5-3.6); CREATINE KINASE 3458 U/L (26-192)
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
[2016-11-03] MEDS ORDERED: POTASSIUM PHOSPHATE INJ 30 MMOL in SODIUM CHLOR 0.9% 250 ML INJ 250 ML IV ONE (14:30)
[2016-11-03] MEDS: ZIPRASIDONE MESYLATE 20 MG VIAL IM PRN (16:13)
[2016-11-03] MEDS: METOPROLOL TARTRATE 5 MG/5 ML VIAL IV PUSH PRN ×2 (16:51→23:06)
[2016-11-04] VITALS (15 sets, daily range): BP systolic 134–180; BP diastolic 80–103; PULSE 65–97; RESP 16–19; TEMP 98.1–98.7; O2SAT 94–100
[2016-11-04] MEDS: hydrALAZINE HCL 20 MG/ML VIAL IV PUSH PRN ×2 (00:18→21:45)
[2016-11-04] MEDS: AZTREONAM INJ 2,000 MG in SODIUM CHLORIDE 0.9% INJ 100 ML IV SCH ×3 (02:00→17:48)
[2016-11-04] MEDS: AZITHROMYCIN INJ 500 MG in SODIUM CHLOR 0.9% 250 ML INJ 250 ML IV SCH (02:15)
[2016-11-04] MEDS: HEPARIN SODIUM - SQ 10,000 UNITS/ML VIAL SQ SCH ×3 (02:15→17:48)
[2016-11-04] MEDS: INSULIN NovoLIN REGULAR SUPPLEMENTAL SCALE SQ SCH ×4 (03:15→21:48)
[2016-11-04] MEDS: RESP: ALBUTEROL 2.5 MG/IPRATROPIUM 0.5 MG NEB (SCH) INH ×4 (03:53→20:26)
[2016-11-04] MEDS: ZIPRASIDONE MESYLATE 20 MG VIAL IM PRN ×2 (04:01→23:15)
[2016-11-04] MEDS: DEXMEDETOMIDINE 200 MCG in NS 50 ML IV SCH (05:28)
[2016-11-04] MEDS ORDERED: DEXMEDETOMIDINE 200 MCG/50 ML NS Premix IV SCH (07:45)
[2016-11-04] MEDS: PANTOPRAZOLE SODIUM 40 MG VIAL IV SCH (08:18)
[2016-11-04] MEDS: SODIUM CHLOR 0.9% 1000 ML INJ 1,000 ML IV SCH ×2 (08:18→19:53)
[2016-11-04] MEDS: SODIUM CHLORIDE 0.9% FLUSH 10 ML FLUSH SCH ×2 (08:19→19:50)
[2016-11-04] MEDS: DOCUSATE SODIUM 50 MG/SENNA 8.6 MG TAB PO SCH ×2 (08:19→19:50)
[2016-11-04] MEDS ORDERED: methylPREDNISolone SOD SUCC 40 MG/1 ML VIAL IV SCH (09:00)
[2016-11-04] MEDS ORDERED: DEXMEDETOMIDINE 200 MCG in NS 50 ML IV SCH (13:00)
[2016-11-04 13:38] LABS: HEMATOCRIT 40.5 % (35.0-46.0); MEAN CORPUSCULAR HEMOGLOBIN 30.1 PG (27.0-34.0); MEAN CORPUSCULAR HGB CONC 33.8 % (32.0-36.0); PLATELET COUNT 174 TH/MM3 (150-450); RED BLOOD COUNT 4.55 MIL/MM3 (4.00-5.30); REVIEW FLAG FINAL; WHITE BLOOD COUNT 8.4 TH/MM3 (4.0-11.0)
[2016-11-04 14:29] LABS: BICARBONATE 30.2 MEQ/L (21.0-32.0); MAGNESIUM 1.8 MG/DL (1.5-2.5); POTASSIUM 3.2 MEQ/L (3.5-5.1)
--- NOTE | 2016-11-04 14:29 | HHI.PR ---
Subjective Subjective Remarks on precedex at 0.3 more calm, oriented to self only not making sense significant other at [facility], initially angry with undersigned. Requesting that I discharge her because her agitation is due to her not liking and trusting azeb attempted to discuss her clinical course and plan of care, he finally calm down pt. did recognize them but her conversation was not making sense SO states she has not psych hx, no illegal drugs. Review of Systems Constitutional Constitutional Remarks 12 point ROS unable to obtain Vitals/Results Intake & Output 11/03/16 11/03/16 11/04/16 15:00 23:00 07:00 Intake Total 1387 ml 1275 ml 1375 ml Output Total 1000 ml 1450 ml 1575 ml Balance 387 ml -175 ml -200 ml IV Total 1387 ml 1275 ml 1375 ml Output Urine Total 1000 ml 1450 ml 1575 ml Vital Signs Vital Signs Date Time Temp Pulse Resp B/P Pulse Ox O2 Delivery O2 Flow Rate FiO2 11/04/16 14:00 85 11/04/16 12:00 98.1 81 18 134/80 99 11/04/16 12:00 80 11/04/16 10:00 81 11/04/16 08:54 99 Nasal Cannula 2.00 11/04/16 08:00 75 11/04/16 08:00 98.3 70 18 150/88 100 11/04/16 07:00 100 Nasal Cannula 2.00 Bi-Pap 11/04/16 06:00 65 11/04/16 04:00 65 11/04/16 04:00 98.7 67 17 153/82 94 11/04/16 02:00 65 11/04/16 00:00 65 11/04/16 00:00 98.7 65 17 180/103 94 11/03/16 22:00 65 11/03/16 20:00 98 Nasal Cannula 2.00 Bi-Pap 11/03/16 20:00 65 11/03/16 20:00 98.3 111 17 107/70 94 11/03/16 19:25 100 Nasal Cannula 3.00 11/03/16 18:00 65 11/03/16 16:00 66 11/03/16 16:00 98.3 75 17 154/80 94 CBC/BMP: 11/04/16 1326 11/03/16 1129 Lab Results Laboratory Tests Test 11/04/16 13:26 White Blood Count 8.4 TH/MM3 Red Blood Count 4.55 MIL/MM3 Hemoglobin 13.7 GM/DL Hematocrit 40.5 % Mean Corpuscular Volume 89.0 FL Mean Corpuscular Hemoglobin 30.1 PG Mean Corpuscular Hemoglobin 33.8 % Concent Red Cell Distribution Width 13.0 % Platelet Count 174 TH/MM3 Mean Platelet Volume 10.5 FL Physical Exam General General Appearance: Well Developed, No Acute Distress, Comfortable, Obese Eyes Eye Exam: Pupils Equal, Pupils Reactive Ears & Nose Ears & Nose Exam: Nasal Mucosa [place] Throat Throat Exam: Oral Mucosa [place] & Moist Neck Neck Exam: Neck Supple, Trachea Midline Pulmonary Resp Exam: Clear Bilaterally, No Distress Cardiology CV Exam: Regular, Good Perfusion Gastrointestinal/Abdomen GI Exam: Soft, Non-Tender, Bowel Sounds Present, Non-Distended Genitourinary Exam: Flank Non-Tender Remarks ETIENNE Integumentary Skin Exam: Warm, Dry Extremeties Extremities Exam: No Edema, Pedal Pulses Palpable Neurologic Neuro Exam: Awake, Speech Clear, Moving All Extremities, No Focal Deficits Psychiatric Psych Remarks agitated, oriented to self only VTE Prophylaxis VTE Prophylaxis Device: SCDs VTE Prophylaxis Meds: Heparin PUD Prophylasis PUD Prophylaxis: Protonix Assessment/Plan Problem List: (1) Altered mental status (2) Rhabdomyolysis (3) Anxiety (4) Obesity (5) Chronic back pain (6) PNA (pneumonia) (7) COPD (chronic obstructive pulmonary disease) (8) Acute renal failure Assessment/Plan 50-year-old female admitted with altered mental status, found with hypercarbic respiratory failure and put on BiPAP. X-ray notable for left lower lobe pneumonia. Sepsis, secondary to pneumonia Pneumonia -Continue with IV fluids Continue with antibiotics and follow cultures -no fever, stable, cultures negative so far Altered mental status, possibly metabolic, CT of the head negative. -Continue with neuro checks Continue restraints for patient protection Continue a Precedex drip, 0.3 mg/hr continue with Ativan 2 mg IV q 6 PRN, Geodon IM -more calm today, recognizes family, doesn't know where she is and conversation not making sense. Try to wean off Precedex Acute renal injury, possibly secondary to sepsis Rhabdomyolysis -Renal function improving -CPK trending down -Dec. NS to 75/hr Continue to follow BMP Electrolyte replacement as needed COPD Hypercarbic respiratory failure now resolved Continue supplemental oxygen Continue with DuoNeb's DC steroids Diabetes type 2 Continue Accu-Cheks before meals and at bedtime and insulin therapy as needed HTN, at times uncontrolled -continue with PRN BP meds Continue with plan for DVT prophylaxis Continue a Protonix for GI prophylaxis Keep in ICU for now, patient very agitated and requiring Precedex for sedation. Replace K D/W RN D/W pt's significant other D/W Dr. Maurice This patient was seen by myself and Dr. Maurice, this note is written on his behalf Problem Qualifiers (1) Altered mental status: Qualified Code: R40.0 - Somnolence (2) Rhabdomyolysis: Qualified Code: M62.82 - Non-traumatic rhabdomyolysis (3) Chronic back pain: Qualified Code: M54.9 - Chronic back pain, unspecified back location, unspecified back pain laterality (4) PNA (pneumonia): Qualified Code: J18.1 - Pneumonia of left lower lobe due to infectious organism (5) COPD (chronic obstructive pulmonary disease): Qualified Code: J44.9 - Chronic obstructive pulmonary disease, unspecified COPD type (6) Acute renal failure: Qualified Code: N17.9 - Acute renal failure, unspecified acute renal failure type Andree Zhong Nov 04, 2016 14:29
[2016-11-04] MEDS ORDERED: POTASSIUM CHLORIDE 25 MEQ EFFERVESCENT TAB PO ONE (15:15)
[2016-11-04] MEDS: LORazepam 2 MG/ML VIAL IV PUSH PRN (16:54)
[2016-11-05] VITALS (14 sets, daily range): BP systolic 110–190; BP diastolic 61–97; PULSE 79–134; RESP 20–25; TEMP 97.9–98.5; O2SAT 94–100
[2016-11-05] MEDS: AZTREONAM INJ 2,000 MG in SODIUM CHLORIDE 0.9% INJ 100 ML IV SCH ×3 (01:59→17:28)
[2016-11-05] MEDS: AZITHROMYCIN INJ 500 MG in SODIUM CHLOR 0.9% 250 ML INJ 250 ML IV SCH (01:59)
[2016-11-05] MEDS: HEPARIN SODIUM - SQ 10,000 UNITS/ML VIAL SQ SCH ×3 (01:59→17:28)
[2016-11-05] MEDS: RESP: ALBUTEROL 2.5 MG/IPRATROPIUM 0.5 MG NEB (SCH) INH ×4 (03:27→21:04)
[2016-11-05] MEDS: CHLORHEXIDINE GLUCONATE 2 % 1 PACK (2 CLOTHS) TOP SCH (03:34)
[2016-11-05] MEDS: INSULIN NovoLIN REGULAR SUPPLEMENTAL SCALE SQ SCH ×4 (03:34→22:15)
[2016-11-05] MEDS: LORazepam 2 MG/ML VIAL IV PUSH PRN ×3 (03:57→15:50)
[2016-11-05 06:04] LABS: CKMB 2.3 NG/ML (0.5-3.6)
[2016-11-05] MEDS: QUEtiapine FUMARATE 25 MG TAB PO SCH ×2 (07:43→12:21)
[2016-11-05] MEDS: PANTOPRAZOLE SODIUM 40 MG VIAL IV SCH (07:43)
[2016-11-05] MEDS: SODIUM CHLOR 0.9% 1000 ML INJ 1,000 ML IV SCH ×2 (07:44→19:38)
[2016-11-05] MEDS: SODIUM CHLORIDE 0.9% FLUSH 10 ML FLUSH SCH ×2 (07:44→19:38)
[2016-11-05] MEDS: DOCUSATE SODIUM 50 MG/SENNA 8.6 MG TAB PO SCH ×2 (07:44→19:38)
[2016-11-05] MEDS: hydrALAZINE HCL 20 MG/ML VIAL IV PUSH PRN ×2 (08:57→15:50)
[2016-11-05] MEDS: ZIPRASIDONE MESYLATE 20 MG VIAL IM PRN (09:53)
[2016-11-05] MEDS ORDERED: SODIUM CHLORID 0.9% 500 ML INJ 500 ML IV ONE (11:00)
[2016-11-05 11:43] LABS: AUTOMATED NEUTROPHIL # 4.4 TH/MM3 (1.8-7.7); BASOPHIL % 0.3 % (0.0-2.0); EOSINOPHIL % 0.1 % (0.0-4.0); HEMATOCRIT 40.8 % (35.0-46.0); HEMO FLAGS DIFF FINAL; LYMPH % 19.3 % (9.0-44.0); LYMPHOCYTE # 1.1 TH/MM3 (1.0-4.8); MEAN CELL VOLUME 88.1 FL (80.0-100.0); MEAN CORPUSCULAR HEMOGLOBIN 31.2 PG (27.0-34.0); MEAN CORPUSCULAR HGB CONC 35.4 % (32.0-36.0); MONO % 5.7 % (0.0-8.0); NEUT % 74.6 % (16.0-70.0); PLATELET COUNT 164 TH/MM3 (150-450); RED BLOOD COUNT 4.63 MIL/MM3 (4.00-5.30); RED CELL DISTRIBUTION WIDTH 13.2 % (11.6-17.2); WHITE BLOOD COUNT 5.8 TH/MM3 (4.0-11.0)
[2016-11-05 12:06] LABS: BICARBONATE 28.4 MEQ/L (21.0-32.0)
[2016-11-05] MEDS ORDERED: POTASSIUM CHLORIDE 10 MEQ CONTROLLED RELEASE TAB PO ONE (12:30)
[2016-11-05] MEDS ORDERED: POTASSIUM CHLOR 20 MEQ PREMIX 100 ML IV ONE (12:30)
[2016-11-05 12:33] LABS: POTASSIUM 2.7 MEQ/L (3.5-5.1)
--- NOTE | 2016-11-05 13:19 | HHI.PR ---
Subjective Subjective Remarks off Precedex remains confused pulled addison out agitated last night conversation not making sense ST on monitor, HR up to 150s. HR better now, 110s difficult to obtain ROS Review of Systems Constitutional Constitutional Remarks 12 point ROS unable to obtain Vitals/Results Intake & Output 11/04/16 11/04/16 11/05/16 15:00 23:00 07:00 Intake Total 1120 ml 1116 ml 740 ml Output Total 1350 ml 1100 ml 1250 ml Balance -230 ml 16 ml -510 ml Intake Oral 240 ml 240 ml 240 ml IV Total 880 ml 876 ml 500 ml Output Urine Total 1350 ml 1100 ml 1250 ml # Bowel Movements 3 Vital Signs Vital Signs Date Time Temp Pulse Resp B/P Pulse Ox O2 Delivery O2 Flow Rate FiO2 11/05/16 10:00 126 11/05/16 09:33 100 21 11/05/16 08:00 97.9 88 20 167/83 97 11/05/16 08:00 88 11/05/16 07:00 97 Room Air 11/05/16 06:00 79 11/05/16 04:00 86 11/05/16 04:00 97.9 86 22 140/80 96 11/05/16 02:00 96 11/05/16 00:00 92 11/05/16 00:00 98.0 82 25 110/61 94 11/04/16 22:00 97 11/04/16 20:26 97 21 11/04/16 20:00 98.3 84 19 140/86 98 11/04/16 20:00 85 11/04/16 19:00 97 Room Air 11/04/16 18:00 92 11/04/16 16:00 98.3 89 16 162/89 97 11/04/16 16:00 87 11/04/16 15:57 99 21 11/04/16 14:00 85 CBC/BMP: 11/05/16 1121 11/05/16 1121 Lab Results Laboratory Tests Test 11/04/16 11/05/16 11/05/16 13:26 04:59 11:21 White Blood Count 8.4 TH/MM3 5.8 TH/MM3 Red Blood Count 4.55 MIL/MM3 4.63 MIL/MM3 Hemoglobin 13.7 GM/DL 14.4 GM/DL Hematocrit 40.5 % 40.8 % Mean Corpuscular Volume 89.0 FL 88.1 FL Mean Corpuscular Hemoglobin 30.1 PG 31.2 PG Mean Corpuscular Hemoglobin 33.8 % 35.4 % Concent Red Cell Distribution Width 13.0 % 13.2 % Platelet Count 174 TH/MM3 164 TH/MM3 Mean Platelet Volume 10.5 FL 10.4 FL Sodium Level 143 MEQ/L 144 MEQ/L Potassium Level 3.2 MEQ/L 2.7 MEQ/L Chloride Level 105 MEQ/L 106 MEQ/L Carbon Dioxide Level 30.2 MEQ/L 28.4 MEQ/L Anion Gap 8 MEQ/L 10 MEQ/L Blood Urea Nitrogen 12 MG/DL 9 MG/DL Creatinine 0.59 MG/DL 0.54 MG/DL Estimat Glomerular Filtration 108 ML/MIN 120 ML/MIN Rate Random Glucose 180 MG/DL 207 MG/DL Calcium Level 8.2 MG/DL 8.8 MG/DL Magnesium Level 1.8 MG/DL Total Creatine Kinase 1529 U/L 1468 U/L Creatine Kinase MB 4.0 NG/ML 2.3 NG/ML Creatine Kinase MB % 0.3 % 0.2 % Neutrophils (%) (Auto) 74.6 % Lymphocytes (%) (Auto) 19.3 % Monocytes (%) (Auto) 5.7 % Eosinophils (%) (Auto) 0.1 % Basophils (%) (Auto) 0.3 % Neutrophils # (Auto) 4.4 TH/MM3 Lymphocytes # (Auto) 1.1 TH/MM3 Monocytes # (Auto) 0.3 TH/MM3 Eosinophils # (Auto) 0.0 TH/MM3 Basophils # (Auto) 0.0 TH/MM3 CBC Comment DIFF FINAL Differential Comment Thyroid Stimulating Hormone 1.090 uIU/ML 3rd Gen Physical Exam General General Appearance: Well Developed, No Acute Distress, Comfortable, Obese Eyes Eye Exam: Pupils Equal, Pupils Reactive Ears & Nose Ears & Nose Exam: Nasal Mucosa [place] Throat Throat Exam: Oral Mucosa [place] & Moist Neck Neck Exam: Neck Supple, Trachea Midline Pulmonary Resp Exam: Clear Bilaterally, No Distress Cardiology CV Exam: Regular, Good Perfusion, Tachycardia Gastrointestinal/Abdomen GI Exam: Soft, Non-Tender, Bowel Sounds Present, Non-Distended Integumentary Skin Exam: Warm, Dry Extremeties Extremities Exam: No Edema, Pedal Pulses Palpable Neurologic Neuro Exam: Awake, Speech Clear, Moving All Extremities, No Focal Deficits Psychiatric Psych Remarks agitated, oriented to self only VTE Prophylaxis VTE Prophylaxis Device: SCDs VTE Prophylaxis Meds: Heparin PUD Prophylasis PUD Prophylaxis: Protonix Assessment/Plan Problem List: (1) Altered mental status (2) Rhabdomyolysis (3) Anxiety (4) Obesity (5) Chronic back pain (6) PNA (pneumonia) (7) COPD (chronic obstructive pulmonary disease) (8) Acute renal failure Assessment/Plan 50-year-old female admitted with altered mental status, found with hypercarbic respiratory failure and put on BiPAP. X-ray notable for left lower lobe pneumonia. Sepsis, secondary to pneumonia Pneumonia -Continue with IV fluids Continue with antibiotics and follow cultures, will change to PO tomorrow -no fever, stable, cultures negative so far Altered mental status, possibly metabolic, CT of the head negative. -Continue with neuro checks Continue restraints for patient protection Continue a Precedex drip, 0.3 mg/hr continue with Ativan 2 mg IV q 6 PRN, Geodon IM -remains agitated and confused, tachycardic. Continue with Seroquel, started today -will check cortisol and ammonia ST, HR up to 150s. Pt not agitated at the time. Difficult to obtain ROS -NS 500 cc bolus -labs done, noted hypokalemic K 2.7, replaced IV and PO Acute renal injury, possibly secondary to sepsis Rhabdomyolysis -Renal function improving -CPK trending down -NS at 75/hr Continue to follow BMP Electrolyte replacement as needed COPD Hypercarbic respiratory failure now resolved Continue supplemental oxygen Continue with DuoNeb's -off steroids Diabetes type 2 Continue Accu-Cheks before meals and at bedtime and insulin therapy as needed HTN, at times uncontrolled -continue with PRN BP meds -ST now, will start Lopressor 25 mg po bid Continue with plan for DVT prophylaxis Continue a Protonix for GI prophylaxis Keep in ICU for now, patient very agitated Replace K D/W RN D/W Dr. Maurice This patient was seen by myself and Dr. Maurice, this note is written on his behalf Problem Qualifiers (1) Altered mental status: Qualified Code: R40.0 - Somnolence (2) Rhabdomyolysis: Qualified Code: M62.82 - Non-traumatic rhabdomyolysis (3) Chronic back pain: Qualified Code: M54.9 - Chronic back pain, unspecified back location, unspecified back pain laterality (4) PNA (pneumonia): Qualified Code: J18.1 - Pneumonia of left lower lobe due to infectious organism (5) COPD (chronic obstructive pulmonary disease): Qualified Code: J44.9 - Chronic obstructive pulmonary disease, unspecified COPD type (6) Acute renal failure: Qualified Code: N17.9 - Acute renal failure, unspecified acute renal failure type Andree Zhong [facility] Nov 05, 2016 13:19
[2016-11-05] MEDS ORDERED: METOPROLOL TARTRATE 25 MG TAB PO ONE (17:30)
[2016-11-05] MEDS ORDERED: DIAZEPAM 10 MG TAB PO SCH (18:00)
[2016-11-05] MEDS: METOPROLOL TARTRATE 25 MG TAB PO SCH (19:38)
[2016-11-05] MEDS ORDERED: METOPROLOL TARTRATE 25 MG TAB PO SCH (21:00)
[2016-11-05] MEDS: DIAZEPAM 10 MG TAB PO SCH (23:04)
[2016-11-06] VITALS (25 sets, daily range): BP systolic 153–208; BP diastolic 83–135; PULSE 88–118; RESP 18–42; TEMP 97.8–98.7; O2SAT 93–99
[2016-11-06] MEDS: hydrALAZINE HCL 20 MG/ML VIAL IV PUSH PRN ×2 (00:35→08:01)
[2016-11-06] MEDS: ZIPRASIDONE MESYLATE 20 MG VIAL IM PRN ×2 (00:35→08:01)
[2016-11-06] MEDS: AZITHROMYCIN INJ 500 MG in SODIUM CHLOR 0.9% 250 ML INJ 250 ML IV SCH (01:28)
[2016-11-06] MEDS: HEPARIN SODIUM - SQ 10,000 UNITS/ML VIAL SQ SCH ×3 (01:28→17:54)
[2016-11-06] MEDS: AZTREONAM INJ 2,000 MG in SODIUM CHLORIDE 0.9% INJ 100 ML IV SCH ×2 (01:28→09:31)
[2016-11-06] MEDS: CHLORHEXIDINE GLUCONATE 2 % 1 PACK (2 CLOTHS) TOP SCH (04:00)
[2016-11-06] MEDS: INSULIN NovoLIN REGULAR SUPPLEMENTAL SCALE SQ SCH ×4 (04:15→20:31)
[2016-11-06] MEDS: DIAZEPAM 10 MG TAB PO SCH ×4 (04:52→23:16)
[2016-11-06 05:03] LABS: BICARBONATE 27.6 MEQ/L (21.0-32.0); POTASSIUM 3.8 MEQ/L (3.5-5.1)
[2016-11-06 05:23] LABS: HEMATOCRIT 45.6 % (35.0-46.0); MEAN CELL VOLUME 89.4 FL (80.0-100.0); MEAN CORPUSCULAR HEMOGLOBIN 29.9 PG (27.0-34.0); MEAN CORPUSCULAR HGB CONC 33.5 % (32.0-36.0); PLATELET COUNT 184 TH/MM3 (150-450); RED CELL DISTRIBUTION WIDTH 13.7 % (11.6-17.2); REVIEW FLAG FINAL; WHITE BLOOD COUNT 12.4 TH/MM3 (4.0-11.0)
[2016-11-06 05:32] LABS: CKMB 6.7 NG/ML (0.5-3.6)
[2016-11-06] MEDS: SODIUM CHLORIDE 0.9% FLUSH 10 ML FLUSH SCH ×2 (08:00→20:31)
[2016-11-06] MEDS: PANTOPRAZOLE SODIUM 40 MG VIAL IV SCH (08:00)
[2016-11-06] MEDS: METOPROLOL TARTRATE 25 MG TAB PO SCH ×2 (08:00→20:30)
[2016-11-06] MEDS: QUEtiapine FUMARATE 25 MG TAB PO SCH ×2 (08:00→11:14)
[2016-11-06] MEDS: DOCUSATE SODIUM 50 MG/SENNA 8.6 MG TAB PO SCH ×2 (08:01→20:30)
[2016-11-06] MEDS: SODIUM CHLOR 0.9% 1000 ML INJ 1,000 ML IV SCH (11:10)
[2016-11-06] MEDS: METOPROLOL TARTRATE 5 MG/5 ML VIAL IV PUSH PRN (11:16)
--- NOTE | 2016-11-06 12:06 | HHI.PR ---
Subjective Subjective Remarks Orientation has improved, she knows she is in the hospital, appears more focused on answering questions More calm and cooperative Requesting Valium Has no complaints No fever Slightly tachycardic Review of Systems Constitutional Constitutional Remarks 12 point ROS unable to obtain Vitals/Results Intake & Output 11/05/16 11/05/16 11/06/16 15:00 23:00 07:00 Intake Total 1196 ml 890 ml 800 ml Output Total 500 ml 500 ml Balance 1196 ml 390 ml 300 ml Intake Oral 360 ml 240 ml IV Total 836 ml 650 ml 800 ml Output Urine Total 500 ml 500 ml # Voids 5 # Bowel Movements 3 1 Vital Signs Vital Signs Date Time Temp Pulse Resp B/P Pulse Ox O2 Delivery O2 Flow Rate FiO2 11/06/16 10:00 97 11/06/16 08:00 98.0 100 27 196/97 95 11/06/16 08:00 108 11/06/16 07:22 103 20 195/104 96 11/06/16 07:19 106 18 190/103 94 11/06/16 07:00 109 26 93 11/06/16 07:00 94 Room Air 11/06/16 06:36 107 31 177/94 97 11/06/16 06:00 118 42 11/06/16 06:00 118 11/06/16 05:00 97 30 153/83 11/06/16 04:01 102 38 153/107 11/06/16 04:00 98.1 103 24 153/107 97 11/06/16 04:00 103 11/06/16 04:00 103 36 11/06/16 02:00 97 11/06/16 00:00 98.7 97 24 200/119 97 11/06/16 00:00 97 11/05/16 22:00 108 11/05/16 21:06 96 21 11/05/16 20:00 98 11/05/16 20:00 98.0 98 24 168/97 97 11/05/16 19:00 97 Room Air 11/05/16 18:00 120 11/05/16 16:00 98.5 134 24 190/86 97 11/05/16 16:00 134 11/05/16 14:00 122 CBC/BMP: 11/06/16 0355 11/06/16 0355 Lab Results Laboratory Tests Test 11/05/16 11/06/16 15:16 03:55 Ammonia 25 MCMOL/L Random Cortisol 23.0 MCG/DL White Blood Count 12.4 TH/MM3 Red Blood Count 5.10 MIL/MM3 Hemoglobin 15.3 GM/DL Hematocrit 45.6 % Mean Corpuscular Volume 89.4 FL Mean Corpuscular Hemoglobin 29.9 PG Mean Corpuscular Hemoglobin 33.5 % Concent Red Cell Distribution Width 13.7 % Platelet Count 184 TH/MM3 Mean Platelet Volume 10.7 FL Hematology Comments Sodium Level 143 MEQ/L Potassium Level 3.8 MEQ/L Chloride Level 106 MEQ/L Carbon Dioxide Level 27.6 MEQ/L Anion Gap 9 MEQ/L Blood Urea Nitrogen 7 MG/DL Creatinine 0.68 MG/DL Estimat Glomerular Filtration 92 ML/MIN Rate Random Glucose 146 MG/DL Calcium Level 9.4 MG/DL Total Creatine Kinase 1199 U/L Creatine Kinase MB 6.7 NG/ML Creatine Kinase MB % 0.6 % Physical Exam General General Appearance: Well Developed, No Acute Distress, Comfortable, Anxious, Obese Eyes Eye Exam: Pupils Equal, Pupils Reactive Ears & Nose Ears & Nose Exam: Nasal Mucosa [place] Throat Throat Exam: Oral Mucosa [place] & Moist Neck Neck Exam: Neck Supple, Trachea Midline Pulmonary Resp Exam: Clear Bilaterally, No Distress Cardiology CV Exam: Regular, Good Perfusion, Tachycardia Gastrointestinal/Abdomen GI Exam: Soft, Non-Tender, Bowel Sounds Present, Non-Distended Integumentary Skin Exam: Warm, Dry Extremeties Extremities Exam: No Edema, Pedal Pulses Palpable Neurologic Neuro Exam: Awake, Speech Clear, Moving All Extremities, No Focal Deficits Psychiatric Psych Remarks Oriented to self and place, less agitated VTE Prophylaxis VTE Prophylaxis Device: SCDs VTE Prophylaxis Meds: Heparin PUD Prophylasis PUD Prophylaxis: Protonix Assessment/Plan Problem List: (1) Altered mental status (2) Rhabdomyolysis (3) Anxiety (4) Obesity (5) Chronic back pain (6) PNA (pneumonia) (7) COPD (chronic obstructive pulmonary disease) (8) Acute renal failure Assessment/Plan 50-year-old female admitted with altered mental status, found with hypercarbic respiratory failure and put on BiPAP. X-ray notable for left lower lobe pneumonia. Sepsis, secondary to pneumonia Pneumonia -Continue with IV fluids Continue with antibiotics and follow cultures -no fever, stable, cultures negative so far -We'll DC antibiotics tomorrow Altered mental status, possibly metabolic, CT of the head negative. -Continue with neuro checks Continue restraints for patient protection Off Precedex drip continue with Ativan 2 mg IV q 6 PRN, Geodon IM -remains agitated and confused, tachycardic. Continue with Seroquel, started today -Cortisol and ammonia okay -Mentation improving, oriented to self and place today. We'll transfer out of ICU, increase activity ST, HR up to 150s. Pt not agitated at the time. Difficult to obtain ROS -Heart rate improving -Continue Lopressor 50 mg by mouth twice a day Acute renal injury, possibly secondary to sepsis Rhabdomyolysis -Renal function improving -CPK trending down -NS at 75/hr Continue to follow BMP Electrolyte replacement as needed COPD Hypercarbic respiratory failure now resolved Continue supplemental oxygen Continue with DuoNeb's -off steroids Diabetes type 2 Continue Accu-Cheks before meals and at bedtime and insulin therapy as needed HTN, at times uncontrolled -continue with PRN BP meds -ST now, will start Lopressor 25 mg po bid Continue with plan for DVT prophylaxis Continue a Protonix for GI prophylaxis Physical therapy for evaluation and treatment Overall mentation is improving Transfer out of ICU to telemetry close nurses station Repeat labs in the morning D/W RN D/W Dr. Maurice This patient was seen by myself and Dr. Maurice, this note is written on his behalf Problem Qualifiers (1) Altered mental status: Qualified Code: R40.0 - Somnolence (2) Rhabdomyolysis: Qualified Code: M62.82 - Non-traumatic rhabdomyolysis (3) Chronic back pain: Qualified Code: M54.9 - Chronic back pain, unspecified back location, unspecified back pain laterality (4) PNA (pneumonia): Qualified Code: J18.1 - Pneumonia of left lower lobe due to infectious organism (5) COPD (chronic obstructive pulmonary disease): Qualified Code: J44.9 - Chronic obstructive pulmonary disease, unspecified COPD type (6) Acute renal failure: Qualified Code: N17.9 - Acute renal failure, unspecified acute renal failure type Andree Zhong Nov 06, 2016 12:06
--- NOTE | 2016-11-06 13:38 | EKG ---
Date Performed: 11/05/2016 Time Performed: 11:27:13 PTAGE: 50 years EKG: SINUS TACHYCARDIA INTRAVENTRICULAR CONDUCTION DELAY PREVIOUS TRACING : 11/01/2016 23.06 COMPARED TO PREVIOUS EKG SINUS TACHYCARDIAS STEVE DOCTOR: Tim Summers Interpretating Date/Time 11/06/2016 13:35:37
[2016-11-06] MEDS ORDERED: amLODIPine BESYLATE 5 MG TAB PO ONE (15:45)
[2016-11-06] MEDS: CEFUROXIME AXETIL 500 MG TAB PO SCH (20:31)
[2016-11-07] VITALS (17 sets, daily range): BP systolic 100–173; BP diastolic 64–105; PULSE 81–96; RESP 22–34; TEMP 98–99.2; O2SAT 92–99
[2016-11-07] MEDS: hydrALAZINE HCL 20 MG/ML VIAL IV PUSH PRN (00:28)
[2016-11-07] MEDS: HEPARIN SODIUM - SQ 10,000 UNITS/ML VIAL SQ SCH ×3 (00:28→18:05)
[2016-11-07] MEDS: CHLORHEXIDINE GLUCONATE 2 % 1 PACK (2 CLOTHS) TOP SCH (04:00)
[2016-11-07] MEDS: INSULIN NovoLIN REGULAR SUPPLEMENTAL SCALE SQ SCH ×4 (04:15→21:59)
[2016-11-07] MEDS: DIAZEPAM 10 MG TAB PO SCH ×3 (05:12→18:05)
[2016-11-07 06:41] LABS: CKMB 3.5 NG/ML (0.5-3.6)
--- NOTE | 2016-11-07 07:43 | HHI.PR ---
Subjective Subjective Remarks Patient more cooperative and calm Oriented to self, able to provide name of the hospital. Still with some disorientation No chest pain Or shortness of breath wants to get out of bed BP up 170s HR improved Review of Systems Constitutional Constitutional Remarks 12 point ROS difficult to obtain. Vitals/Results Intake & Output 11/06/16 11/06/16 11/07/16 15:00 23:00 07:00 Intake Total 724 ml 360 ml 100 ml Balance 724 ml 360 ml 100 ml Intake Oral 240 ml 360 ml 100 ml IV Total 484 ml 0 ml 0 ml # Voids 3 2 1 # Bowel Movements 1 0 0 Vital Signs Vital Signs Date Time Temp Pulse Resp B/P Pulse Ox O2 Delivery O2 Flow Rate FiO2 11/07/16 04:00 98.1 91 25 173/88 97 11/07/16 04:00 91 11/07/16 00:00 98.2 86 29 168/105 95 11/07/16 00:00 86 11/06/16 20:00 99 11/06/16 20:00 98.4 99 33 193/99 97 11/06/16 19:00 97 Room Air 11/06/16 18:00 96 22 171/95 11/06/16 18:00 96 11/06/16 17:00 92 29 11/06/16 16:00 98.0 100 40 203/135 11/06/16 16:00 89 11/06/16 15:00 100 32 96 11/06/16 14:00 99 33 202/109 95 11/06/16 14:00 89 11/06/16 13:00 93 31 96 11/06/16 12:00 91 35 208/102 96 11/06/16 12:00 97.8 91 35 208/102 96 11/06/16 12:00 88 11/06/16 11:12 92 24 204/100 96 11/06/16 11:09 92 23 207/112 96 11/06/16 11:00 94 29 96 11/06/16 10:00 108 30 198/103 94 11/06/16 10:00 97 11/06/16 09:00 114 31 176/85 94 11/06/16 08:00 100 27 196/97 95 11/06/16 08:00 98.0 100 27 196/97 95 11/06/16 08:00 108 CBC/BMP: 11/06/16 0355 11/06/16 0355 Lab Results Laboratory Tests Test 11/07/16 05:08 Total Creatine Kinase 409 U/L Creatine Kinase MB 3.5 NG/ML Creatine Kinase MB % 0.9 % Physical Exam General General Appearance: Well Developed, No Acute Distress, Comfortable, Obese Eyes Eye Exam: Pupils Equal, Pupils Reactive Ears & Nose Ears & Nose Exam: Nasal Mucosa [place] Throat Throat Exam: Oral Mucosa [place] & Moist Neck Neck Exam: Neck Supple, Trachea Midline Pulmonary Resp Exam: Clear Bilaterally, No Distress Cardiology CV Exam: Regular, Good Perfusion, Tachycardia Gastrointestinal/Abdomen GI Exam: Soft, Non-Tender, Bowel Sounds Present, Non-Distended Musculoskeletal MS Exam: Joints Intact Integumentary Skin Exam: Warm, Dry Extremeties Extremities Exam: No Edema, Pedal Pulses Palpable Neurologic Neuro Exam: Awake, Speech Clear, Moving All Extremities, No Focal Deficits Psychiatric Psych Remarks Less agitation VTE Prophylaxis VTE Prophylaxis Device: SCDs VTE Prophylaxis Meds: Heparin PUD Prophylasis PUD Prophylaxis: Protonix Assessment/Plan Problem List: (1) Altered mental status (2) Rhabdomyolysis (3) Anxiety (4) Obesity (5) Chronic back pain (6) PNA (pneumonia) (7) COPD (chronic obstructive pulmonary disease) (8) Acute renal failure Assessment/Plan 50-year-old female admitted with altered mental status, found with hypercarbic respiratory failure and put on BiPAP. X-ray notable for left lower lobe pneumonia. Sepsis, secondary to pneumonia Pneumonia -Cultures negative, now on oral antibiotics. Tolerating well. No fever Altered mental status, possibly metabolic, CT of the head negative. -Continue with neuro checks Continue restraints for patient protection Off Precedex drip continue with Ativan 2 mg IV q 6 PRN, Geodon IM -Continue with Seroquel -Cortisol and ammonia okay -Continues to improve ST, HR up to 150s. -Heart rate improving -Continue Lopressor 50 mg by mouth twice a day Acute renal injury, possibly secondary to sepsis Rhabdomyolysis -Renal function improved DC IV fluids CPK trending down COPD Hypercarbic respiratory failure now resolved Continue supplemental oxygen Continue with DuoNeb's -off steroids Diabetes type 2 Continue Accu-Cheks before meals and at bedtime and insulin therapy as needed HTN, at times uncontrolled -continue with PRN BP meds -Continue Lopressor, we will add lisinopril 5 mg by mouth daily Continue with plan for DVT prophylaxis Continue a Protonix for GI prophylaxis Out of bed with physical therapy today Waiting to be transfer out of ICU Continues to improve, hopefully discharge in 1-2 days D/W RN D/W Dr. Maurice D/W pt. This patient was seen by myself and Dr. Maurice, this note is written on his behalf Problem Qualifiers (1) Altered mental status: Qualified Code: R40.0 - Somnolence (2) Rhabdomyolysis: Qualified Code: M62.82 - Non-traumatic rhabdomyolysis (3) Chronic back pain: Qualified Code: M54.9 - Chronic back pain, unspecified back location, unspecified back pain laterality (4) PNA (pneumonia): Qualified Code: J18.1 - Pneumonia of left lower lobe due to infectious organism (5) COPD (chronic obstructive pulmonary disease): Qualified Code: J44.9 - Chronic obstructive pulmonary disease, unspecified COPD type (6) Acute renal failure: Qualified Code: N17.9 - Acute renal failure, unspecified acute renal failure type Andree Zhong [facility] Nov 07, 2016 07:43
[2016-11-07] MEDS: amLODIPine BESYLATE 5 MG TAB PO SCH (08:25)
[2016-11-07] MEDS: CEFUROXIME AXETIL 500 MG TAB PO SCH ×2 (08:25→20:59)
[2016-11-07] MEDS: PANTOPRAZOLE SODIUM 40 MG VIAL IV SCH (08:25)
[2016-11-07] MEDS: METOPROLOL TARTRATE 25 MG TAB PO SCH ×2 (08:25→20:58)
[2016-11-07] MEDS: SODIUM CHLORIDE 0.9% FLUSH 10 ML FLUSH SCH ×2 (08:25→20:59)
[2016-11-07] MEDS: DOCUSATE SODIUM 50 MG/SENNA 8.6 MG TAB PO SCH ×2 (08:25→20:59)
[2016-11-07] MEDS: AZITHROMYCIN 250 MG TAB PO SCH (08:26)
[2016-11-07] MEDS: QUEtiapine FUMARATE 25 MG TAB PO SCH ×2 (08:26→11:22)
[2016-11-07] MEDS: LISINOPRIL 5 MG TAB PO SCH (08:26)
[2016-11-07] MEDS ORDERED: TEMAZEPAM 15 MG CAP PO PRN (14:45)
[2016-11-07] MEDS: LORazepam 2 MG/ML VIAL IV PUSH PRN (21:57)
[2016-11-08] VITALS (7 sets, daily range): BP systolic 120–161; BP diastolic 61–85; PULSE 77–92; RESP 17–22; TEMP 98–99.1; O2SAT 95–98
[2016-11-08] MEDS: HEPARIN SODIUM - SQ 10,000 UNITS/ML VIAL SQ SCH ×3 (00:28→17:10)
[2016-11-08] MEDS: DIAZEPAM 10 MG TAB PO SCH ×4 (00:28→17:10)
[2016-11-08] MEDS: CHLORHEXIDINE GLUCONATE 2 % 1 PACK (2 CLOTHS) TOP SCH (04:00)
[2016-11-08] MEDS: LORazepam 2 MG/ML VIAL IV PUSH PRN (04:08)
[2016-11-08] MEDS: INSULIN NovoLIN REGULAR SUPPLEMENTAL SCALE SQ SCH ×4 (04:13→21:52)
[2016-11-08] MEDS: QUEtiapine FUMARATE 100 MG TAB PO SCH ×2 (08:15→11:49)
[2016-11-08] MEDS: LISINOPRIL 5 MG TAB PO SCH (08:15)
[2016-11-08] MEDS: CEFUROXIME AXETIL 500 MG TAB PO SCH ×2 (08:16→21:48)
[2016-11-08] MEDS: METOPROLOL TARTRATE 25 MG TAB PO SCH ×2 (08:16→21:48)
[2016-11-08] MEDS: AZITHROMYCIN 250 MG TAB PO SCH (08:16)
[2016-11-08] MEDS: amLODIPine BESYLATE 5 MG TAB PO SCH (08:16)
[2016-11-08] MEDS: PANTOPRAZOLE SODIUM 40 MG VIAL IV SCH (08:17)
[2016-11-08] MEDS: DOCUSATE SODIUM 50 MG/SENNA 8.6 MG TAB PO SCH ×2 (08:20→21:48)
[2016-11-08] MEDS: SODIUM CHLORIDE 0.9% FLUSH 10 ML FLUSH SCH ×2 (08:20→21:47)
--- NOTE | 2016-11-08 11:09 | HHI.PR ---
Subjective Subjective Remarks Altered mental status, thinks she's in a different place this morning Soft wrist restraints on Awake Afebrile vital Signs stable (Alida Lea) Review of Systems Constitutional Constitutional: Fatigue, Weakness Constitutional Remarks Limited ROS assessment secondary to altered mental status (Alida Lea ) Musculoskeletal MS: Weakness (generalized, soft wrist restraints on) (Alida Lea) Vitals/Results Intake & Output 11/07/16 11/07/16 11/08/16 15:00 23:00 07:00 Intake Total 400 ml 360 ml 360 ml Balance 400 ml 360 ml 360 ml Intake Oral 400 ml 360 ml 360 ml # Voids 2 1 2 # Bowel Movements 0 0 Vital Signs Vital Signs Date Time Temp Pulse Resp B/P Pulse Ox O2 Delivery O2 Flow Rate FiO2 11/08/16 09:00 87 11/08/16 09:00 Room Air 11/08/16 08:00 98.4 86 18 161/85 97 11/08/16 04:16 98.7 77 22 120/72 96 11/08/16 04:16 Room Air 11/08/16 00:26 Room Air 11/08/16 00:26 99.1 83 22 151/84 96 11/07/16 21:02 89 11/07/16 20:56 98.9 93 22 158/84 96 11/07/16 20:56 Room Air 11/07/16 19:00 95 Room Air 11/07/16 16:00 98.0 81 34 100/68 11/07/16 16:00 84 11/07/16 15:00 81 33 11/07/16 14:00 82 28 101/64 11/07/16 13:00 82 30 11/07/16 12:00 98.1 83 28 123/74 11/07/16 12:00 81 11/07/16 12:00 83 28 123/74 11/07/16 11:00 83 25 (Alida Lea) CBC/BMP: 11/06/16 0355 11/06/16 0355 Current Medications Administered Medications Medications (Trade) Dose Ordered Sig/Tana Route PRN Reason Start Time Stop Time Status Last Admin Dose Admin Sodium Chloride (NS Flush) 2 ml BID .XX 11/02/16 09:00 11/08/16 08:20 Acetaminophen (Tylenol) 650 mg Q6H PRN PO PAIN 1-10 AND/OR FEVER >101F 11/02/16 01:45 11/04/16 21:45 Pantoprazole Sodium (Protonix Inj) 40 mg DAILY IV 11/02/16 09:00 11/08/16 08:17 Ondansetron HCl (Zofran Inj) 4 mg Q6H PRN IV NAUSEA OR VOMITING 11/02/16 01:45 11/03/16 11:24 Heparin Sodium (Porcine) (Heparin Inj) 5,000 units Q8H SQ 11/02/16 01:45 11/08/16 10:29 Chlorhexidine Gluconate (Chlorhexidine 2% Cloth) Taper DAILY@04 TOP 11/02/16 04:00 10/29/17 03:59 11/08/16 04:00 Senna/Docusate Sodium (Kalani-Colace) 1 tab BID PO 11/02/16 09:00 11/07/16 20:59 Insulin Human Regular (NovoLIN R SUPPLEMENTAL SCALE) 1 Q6H SQ 11/02/16 10:15 11/07/16 10:15 Metoprolol Tartrate (Lopressor Inj) 10 mg Q4H PRN IV PUSH HYPERTENSION 11/03/16 03:45 11/06/16 11:16 Lorazepam (Ativan Inj) 2 mg Q6H PRN IV PUSH AGITATION 11/03/16 20:15 11/08/16 04:08 Ziprasidone (Geodon Inj) 20 mg Q4H PRN IM SEVERE AGITATION 11/03/16 16:00 11/06/16 08:01 Hydralazine HCl (Apresoline Inj) 20 mg Q4H PRN IV PUSH SBP>160, DBP>90 11/04/16 00:15 11/07/16 00:28 Diazepam (Valium) 10 mg Q6HR PO 11/06/16 00:00 11/08/16 00:28 Cefuroxime Axetil (Ceftin) 500 mg Q12HR PO 11/06/16 21:00 11/08/16 08:16 Azithromycin (Zithromax) 500 mg DAILY PO 11/07/16 09:00 11/08/16 08:16 Metoprolol Tartrate (Lopressor) 100 mg Q12HR PO 11/06/16 21:00 11/08/16 08:16 Amlodipine Besylate (Norvasc) 5 mg DAILY PO 11/07/16 09:00 11/08/16 08:16 Lisinopril (Prinivil) 5 mg DAILY PO 11/07/16 09:00 11/08/16 08:15 Quetiapine Fumarate (SEROquel) 100 mg BID@09,12 PO 11/08/16 09:00 11/08/16 08:15 Temazepam (Restoril) 30 mg HS PRN PO sleep 11/07/16 14:45 11/07/16 20:58 (Alida LeaP) Physical Exam General General Appearance: Well Developed, No Acute Distress, Comfortable, Anxious, Obese Appearance Remarks Soft wrist restraints on, trying to get out of the bed (Alida Lea [employer]) Eyes Eye Exam: Pupils Equal, Pupils Reactive (Alida Lea [employer]) Ears & Nose Ears & Nose Exam: Nasal Mucosa [place] (Alida Lea [employer] MA[employer]) Throat Throat Exam: Oral Mucosa [place] & Moist (Alida Lea. [employer] MA[employer]GER) Neck Neck Exam: Neck Supple, Trachea Midline (Alida Lea. [employer]GER) Pulmonary Resp Exam: Clear Bilaterally, No Distress, Diminished Breath Sounds (Alida Lea. [employer]) Cardiology CV Exam: Regular, Good Perfusion, Tachycardia (Alida Lea. [employer] MA[employer]GER) Gastrointestinal/Abdomen GI Exam: Soft, Non-Tender, Bowel Sounds Present, Non-Distended (Alida Lea. [employer]) Musculoskeletal MS Exam: Joints Intact (Alida Lea. [employer]) Integumentary Skin Exam: Warm, Dry (Alida Lea. [employer]GER) Extremeties Extremities Exam: No Edema, Pedal Pulses Palpable (Alida Lea. [employer]) Neurologic Neuro Exam: Awake, Speech Clear, Moving All Extremities, No Focal Deficits Neuro Remarks Altered mental status pleasant (Alida Lea. [employer]) VTE Prophylaxis VTE Prophylaxis Device: SCDs VTE Prophylaxis Meds: Heparin (Alida Lea. [employer]) PUD Prophylasis PUD Prophylaxis: Protonix (Alida Lea) Assessment/Plan Problem List: (1) Altered mental status (2) Rhabdomyolysis (3) Anxiety (4) Obesity (5) Chronic back pain (6) PNA (pneumonia) (7) COPD (chronic obstructive pulmonary disease) (8) Acute renal failure Assessment/Plan Brief note from history 50-year-old female admitted with altered mental status, found with hypercarbic respiratory failure and put on BiPAP. X-ray notable for left lower lobe pneumonia. Vital signs reviewed, monitoring BP trend currently systolic 161, diastolic 85 Afebrile Lab trends reviewed UTI possible, culture showed contaminant Sepsis, probable pneumonia -Cultures negative, so far, now on oral antibiotics. Altered mental status, possibly metabolic, encephalopathy neuro checks, soft wrist restraints on Ammonia level decreased, continue to monitor Tachycardia now resolved, heart rate normal trends now Lopressor 50 mg by mouth twice a day, telemetry continue to monitor Acute renal injury, possibly secondary to sepsis Rhabdomyolysis, trends improving for him in today -Renal function improved COPD Hypercarbic respiratory failure now resolved Continue oxygen dual nebs, medical management. No shortness of breath noted at rest Diabetes type 2 Continue Accu-Cheks before meals and at bedtime and insulin therapy as needed HTN, uncontrolled initially but now controlled ranges with medical management continue with PRN BP meds Continue with plan for DVT prophylaxis Continue a Protonix for GI prophylaxis Monitor bowel regimen, patient states BM in the last 24 hours, but does have altered mental status D/W Dr. Sinclair, seen on his behalf D/W pt. , altered mental status No family present Discharge planning when patient is stable, will have to be off of restraints at least 24 hours before discharge (Alida Lea) Assessment/Plan pt is seen and examined as above labs meds and rad data reviwed some of previous notes reviweds bing psych input plan of care and above note socrates fuller (Kimberly Sinclair MD) Problem Qualifiers (1) Altered mental status: Qualified Code: R40.0 - Somnolence (2) Rhabdomyolysis: Qualified Code: M62.82 - Non-traumatic rhabdomyolysis (3) Chronic back pain: Qualified Code: M54.9 - Chronic back pain, unspecified back location, unspecified back pain laterality (4) PNA (pneumonia): Qualified Code: J18.1 - Pneumonia of left lower lobe due to infectious organism (5) COPD (chronic obstructive pulmonary disease): Qualified Code: J44.9 - Chronic obstructive pulmonary disease, unspecified COPD type (6) Acute renal failure: Qualified Code: N17.9 - Acute renal failure, unspecified acute renal failure type Alida Lea Nov 08, 2016 11:09 Kimberly Sinclair MD Nov 08, 2016 15:50
[2016-11-08] MEDS ORDERED: HALOPERIDOL LACTATE 5 MG/ML AMP IM PRN (12:45)
--- NOTE | 2016-11-08 12:56 | PD.CONS ---
Provisional Diagnosis Admission Date Nov 02, 2016 at 01:17 [place] I. Delirium due to underlying medical conditions History of Present Illness Service Psychiatry Consult Requested By Primary Care Physician Unknown HPI The patient is a 50-year-old woman,unknown psychic history, no collateral information at the moment, admitted with altered mental status, found with hypercarbic respiratory failure and put on BiPAP. X-ray notable for left lower lobe pneumonia. Admitted due to Sepsis, secondary to pneumonia Pneumonia, Altered mental status, possibly metabolic, CT of the head negative. Acute renal injury, possibly secondary to sepsis, Rhabdomyolysis, COPD, Hypercarbic respiratory failure now resolved. Consulted to psychiatry due to altered mental status. QTC 459. collateral from Demetri Burciaga, , could not be obtained. On psychiatric evaluation today patient is found restrained in 2 points, disorganized, poorly cooperative. Patient is oriented in place, but disoriented in time. She knows that she is at [facility] in [place], but she things that she is in August 1999. Patient has fluctuation of consciousness, with periods of lucidity Marked disorganized speech. Patient is not able to provide reliable information for the psychiatric assessment at this moment. However, she described her mood as optimistic, denies suicidal or homicidal ideation. She seems to be internally stimulated, probably having visual hallucinations, she says that she saw 5 people in the room at the moment of the evaluation. However, she does not seems to be distressed by perceptual disturbances. She denies psychiatric history, she denies previous suicidal attempts, she denies taking outpatient psychotropics. Unfortunately, no collateral information could be obtained. Review of Systems ROS Limitations: Altered Mental Status, Uncooperative Past Family Social History Coded Allergies: Baclofen (Verified Allergy, Severe, HIVES, BLISTERS, VOMITING, 11/01/16) Codeine (Verified Allergy, Severe, 11/01/16) Iodinated Contrast Media (Verified Allergy, Severe, 11/01/16) Tramadol (Verified Allergy, Severe, Hives, BLISTERS, 11/01/16) Iodine (Verified Allergy, Unknown, UNKNOWN REACTION, 11/01/16) Penicillin (Verified Allergy, Unknown, UNKNOWN REACTION, 11/01/16) Unable to Obtain Active Prescriptions or Reported Meds Current Medications Medications (Trade) Dose Ordered Sig/Tana Route Start Time Stop Time Status Last Admin (NS Flush) 2 ml UNSCH PRN .XX 11/02/16 01:45 (NS Flush) 2 ml BID .XX 11/02/16 09:00 11/08/16 08:20 (Tylenol) 650 mg Q6H PRN PO 11/02/16 01:45 11/04/16 21:45 (Protonix Inj) 40 mg DAILY IV 11/02/16 09:00 11/08/16 08:17 (Zofran Inj) 4 mg Q6H PRN IV 11/02/16 01:45 11/03/16 11:24 (Compazine Supp) 25 mg Q12H PRN RECTAL 11/02/16 01:45 (Heparin Inj) 5,000 units Q8H SQ 11/02/16 01:45 11/08/16 10:29 Miscellaneous Information 1 Q361D XX 11/02/16 01:45 (Chlorhexidine 2% Cloth) Taper DAILY@04 TOP 11/02/16 04:00 10/29/17 03:59 11/08/16 04:00 (Chlorhexidine 2% Cloth) 3 pack UNSCH PRN TOP 11/02/16 01:45 (Kalani-Colace) 1 tab BID PO 11/02/16 09:00 11/07/16 20:59 (Milk Of Magnesia Liq) 30 ml Q12H PRN PO 11/02/16 01:45 (Senokot) 17.2 mg Q12H PRN PO 11/02/16 01:45 (Dulcolax Supp) 10 mg DAILY PRN RECTAL 11/02/16 01:45 (Lactulose Liq) 30 ml DAILY PRN PO 11/02/16 01:45 (D50w (Vial) Inj) 50 ml UNSCH PRN IV 11/02/16 10:15 (Glucagon Inj) 1 mg UNSCH PRN OTHER 11/02/16 10:15 (NovoLIN R SUPPLEMENTAL SCALE) 1 Q6H SQ 11/02/16 10:15 11/07/16 10:15 (Lopressor Inj) 10 mg Q4H PRN IV PUSH 11/03/16 03:45 11/06/16 11:16 (Ativan Inj) 2 mg Q6H PRN IV PUSH 11/03/16 20:15 11/08/16 04:08 (Geodon Inj) 20 mg Q4H PRN IM 11/03/16 16:00 11/06/16 08:01 (Apresoline Inj) 20 mg Q4H PRN IV PUSH 11/04/16 00:15 11/07/16 00:28 (Valium) 10 mg Q6HR PO 11/06/16 00:00 11/08/16 11:49 (Ceftin) 500 mg Q12HR PO 11/06/16 21:00 11/08/16 08:16 (Zithromax) 500 mg DAILY PO 11/07/16 09:00 11/08/16 08:16 (Lopressor) 100 mg Q12HR PO 11/06/16 21:00 11/08/16 08:16 (Norvasc) 5 mg DAILY PO 11/07/16 09:00 11/08/16 08:16 (Prinivil) 5 mg DAILY PO 11/07/16 09:00 11/08/16 08:15 (SEROquel) 100 mg BID@09,12 PO 11/08/16 09:00 11/08/16 11:49 (Restoril) 30 mg HS PRN PO 11/07/16 14:45 11/07/16 20:58 Physical Exam Vital Signs Vital Signs Date Time Temp Pulse Resp B/P Pulse Ox O2 Delivery O2 Flow Rate FiO2 11/08/16 09:00 87 11/08/16 09:00 Room Air 11/08/16 08:00 98.4 18 161/85 97 11/05/16 21:06 21 11/04/16 08:54 2.00 I/O 11/07/16 11/07/16 11/08/16 08:00 16:00 00:00 Intake Total 100 ml 400 ml 360 ml Balance 100 ml 400 ml 360 ml Lab Results Mental Status Examination Appearance woman, older than stated age, disheveled, restrained in upper extremities Speech: Other (slurred, incoherent) Orientation: Person, Place Thought Process: Loose Association, Tangential Thought Content: Bizarre thinking Homicidal Ideation: No Previous Homicide Attempts: No Judgment: Poor Affect if Inappropriate: Labile Mood: Euthymic, Angry Motor Activity: Abnormal gait-specify Assessment & Plan Problem List: (1) Delirium due to another medical condition Assessment & Plan: On psychiatric evaluation the patient presents disorganized thought and behavior, agitation, tangentiality, loosening of associations, with marked fluctuation of consciousness and impaired attention span. Patient is partially oriented in place, disoriented in time. She presents some periods of lucidity, but most of the time she seems to have important to with reality. Current presentation seems to be secondary to delirium related with underlying medical conditions. There is no evidence of previous psychiatric history at this moment. But, more collateral information is needed in order to complete the psychiatric assessment. My impression is that current neuropsychiatric symptoms will disappear as medical condition improved, but if they persist beyond medical clearance patient might benefit of psychiatric admission. I agree with Seroquel 100 mg twice a day for behavior control. Will add Haldol 2 mg IM/IV every 8 hours when necessary aggressive behavior and agitation. Frequent reorientation, sensory stimulation, familiar faces around, appropriate light in the unit could be very beneficial. Try to avoid deliriogenic medications as much as possible, such as benzodiazepines/anticholinergics,/ opiates. We'll continue follow-up. ICD Code: F05 Assessment & Plan Estimated LOS: Elkin Bauman MD Nov 08, 2016 12:56
[2016-11-09] VITALS (8 sets, daily range): BP systolic 103–166; BP diastolic 65–89; PULSE 73–79; RESP 17–20; TEMP 97.4–98.4; O2SAT 96–98
[2016-11-09] MEDS: HEPARIN SODIUM - SQ 10,000 UNITS/ML VIAL SQ SCH ×3 (00:57→17:14)
[2016-11-09] MEDS: DIAZEPAM 10 MG TAB PO SCH ×4 (00:57→17:14)
[2016-11-09] MEDS: CHLORHEXIDINE GLUCONATE 2 % 1 PACK (2 CLOTHS) TOP SCH (04:00)
[2016-11-09] MEDS: INSULIN NovoLIN REGULAR SUPPLEMENTAL SCALE SQ SCH ×3 (04:15→16:15)
[2016-11-09] MEDS: QUEtiapine FUMARATE 100 MG TAB PO SCH ×2 (08:36→11:11)
[2016-11-09] MEDS: AZITHROMYCIN 250 MG TAB PO SCH (08:36)
[2016-11-09] MEDS: LISINOPRIL 5 MG TAB PO SCH (08:36)
[2016-11-09] MEDS: CEFUROXIME AXETIL 500 MG TAB PO SCH ×2 (08:36→21:05)
[2016-11-09] MEDS: DOCUSATE SODIUM 50 MG/SENNA 8.6 MG TAB PO SCH ×2 (08:36→21:04)
[2016-11-09] MEDS: PANTOPRAZOLE SODIUM 40 MG VIAL IV SCH (08:37)
[2016-11-09] MEDS: amLODIPine BESYLATE 5 MG TAB PO SCH (08:37)
[2016-11-09] MEDS: SODIUM CHLORIDE 0.9% FLUSH 10 ML FLUSH SCH ×2 (08:37→21:05)
[2016-11-09] MEDS: METOPROLOL TARTRATE 25 MG TAB PO SCH ×2 (08:37→21:04)
--- NOTE | 2016-11-09 11:31 | HHI.PR ---
Subjective Subjective Remarks Calm, still has pleasant confusion Soft wrist restraints on Talkative Afebrile vital Signs stable (Alida Lea) Review of Systems Constitutional Constitutional: Fatigue, Weakness Constitutional Remarks Limited ROS assessment secondary to altered mental status (Alida Lea ) Musculoskeletal MS: Weakness (generalized, soft wrist restraints on) (Alida Lea) Vitals/Results Intake & Output 11/08/16 11/08/16 11/09/16 15:00 23:00 07:00 Intake Total 480 ml 280 ml 240 ml Output Total 425 ml Balance 55 ml 280 ml 240 ml Intake Oral 480 ml 280 ml 240 ml Output Urine Total 425 ml # Voids 1 1 # Bowel Movements 0 0 Vital Signs Vital Signs Date Time Temp Pulse Resp B/P Pulse Ox O2 Delivery O2 Flow Rate FiO2 11/09/16 08:00 98.4 79 18 166/89 98 11/09/16 04:00 97.6 73 20 148/80 96 11/09/16 00:00 98.2 76 17 141/74 98 11/08/16 20:40 Room Air 11/08/16 20:00 98.0 80 17 142/70 95 11/08/16 20:00 92 11/08/16 16:04 Room Air 11/08/16 16:00 98.2 81 18 143/61 98 11/08/16 12:00 Room Air 11/08/16 12:00 98.6 78 18 135/68 96 (Alida Lea) CBC/BMP: 11/06/16 0355 11/06/16 0355 Current Medications Administered Medications Medications (Trade) Dose Ordered Sig/Tana Route PRN Reason Start Time Stop Time Status Last Admin Dose Admin Sodium Chloride (NS Flush) 2 ml BID .XX 11/02/16 09:00 11/09/16 08:37 Acetaminophen (Tylenol) 650 mg Q6H PRN PO PAIN 1-10 AND/OR FEVER >101F 11/02/16 01:45 11/04/16 21:45 Pantoprazole Sodium (Protonix Inj) 40 mg DAILY IV 11/02/16 09:00 11/09/16 08:37 Ondansetron HCl (Zofran Inj) 4 mg Q6H PRN IV NAUSEA OR VOMITING 11/02/16 01:45 11/03/16 11:24 Heparin Sodium (Porcine) (Heparin Inj) 5,000 units Q8H SQ 11/02/16 01:45 11/09/16 11:12 Chlorhexidine Gluconate (Chlorhexidine 2% Cloth) Taper DAILY@04 TOP 11/02/16 04:00 10/29/17 03:59 11/08/16 04:00 Senna/Docusate Sodium (Kalani-Colace) 1 tab BID PO 11/02/16 09:00 11/09/16 08:36 Insulin Human Regular (NovoLIN R SUPPLEMENTAL SCALE) 1 Q6H SQ 11/02/16 10:15 11/07/16 10:15 Metoprolol Tartrate (Lopressor Inj) 10 mg Q4H PRN IV PUSH HYPERTENSION 11/03/16 03:45 11/06/16 11:16 Lorazepam (Ativan Inj) 2 mg Q6H PRN IV PUSH AGITATION 11/03/16 20:15 11/08/16 04:08 Hydralazine HCl (Apresoline Inj) 20 mg Q4H PRN IV PUSH SBP>160, DBP>90 11/04/16 00:15 11/07/16 00:28 Diazepam (Valium) 10 mg Q6HR PO 11/06/16 00:00 11/09/16 11:11 Cefuroxime Axetil (Ceftin) 500 mg Q12HR PO 11/06/16 21:00 11/09/16 08:36 Azithromycin (Zithromax) 500 mg DAILY PO 11/07/16 09:00 11/09/16 08:36 Metoprolol Tartrate (Lopressor) 100 mg Q12HR PO 11/06/16 21:00 11/09/16 08:37 Amlodipine Besylate (Norvasc) 5 mg DAILY PO 11/07/16 09:00 11/09/16 08:37 Lisinopril (Prinivil) 5 mg DAILY PO 11/07/16 09:00 11/09/16 08:36 Quetiapine Fumarate (SEROquel) 100 mg BID@09,12 PO 11/08/16 09:00 11/09/16 11:11 Temazepam (Restoril) 30 mg HS PRN PO sleep 11/07/16 14:45 11/07/16 20:58 (StewartAlida M. CHARGER TESTER) Physical Exam General General Appearance: Well Developed, No Acute Distress, Comfortable, Anxious, Obese Appearance Remarks Soft wrist restraints on, trying to get out of the bed (LeonoraAlida M. CHARGER TESTER) Eyes Eye Exam: Pupils Equal, Pupils Reactive (Stewart,Alida M. CHARGER TESTER) Ears & Nose Ears & Nose Exam: Nasal Mucosa [place] (Leonora,Alida M. CHARGER TESTER) Throat Throat Exam: Oral Mucosa [place] & Moist (StewartAlida M. CHARGER TESTER) Neck Neck Exam: Neck Supple, Trachea Midline (Stewart,Alida M. CHARGER TESTER) Pulmonary Resp Exam: Clear Bilaterally, No Distress, Diminished Breath Sounds (Leonora, Alida M. CHARGER TESTER) Cardiology CV Exam: Regular, Good Perfusion, Tachycardia (Leonora,Alida M. CHARGER TESTER) Gastrointestinal/Abdomen GI Exam: Soft, Non-Tender, Bowel Sounds Present, Non-Distended (StewartAlida M. CHARGER TESTER) Musculoskeletal MS Exam: Joints Intact (LeonoraAlida M. CHARGER TESTER) Integumentary Skin Exam: Warm, Dry (StewartAlida M. CHARGER TESTER) Extremeties Extremities Exam: No Edema, Pedal Pulses Palpable (Stewart,Alida M. CHARGER TESTER) Neurologic Neuro Exam: Awake, Speech Clear, Moving All Extremities, No Focal Deficits Neuro Remarks Altered mental status pleasant (Leonora,Alida M. CHARGER TESTER) VTE Prophylaxis VTE Prophylaxis Device: SCDs VTE Prophylaxis Meds: Heparin (Leonora,Alida M. CHARGER TESTER) PUD Prophylasis PUD Prophylaxis: Protonix (Leonora,Alida M. CHARGER TESTER) Assessment/Plan Problem List: (1) Altered mental status (2) Rhabdomyolysis (3) Anxiety (4) Obesity (5) Chronic back pain (6) PNA (pneumonia) (7) COPD (chronic obstructive pulmonary disease) (8) Acute renal failure Assessment/Plan (1) Altered mental status (2) Rhabdomyolysis (3) Anxiety (4) Obesity (5) Chronic back pain (6) PNA (pneumonia) (7) COPD (chronic obstructive pulmonary disease) (8) Acute renal failure Assessment/Plan Brief note from history 50-year-old female admitted with altered mental status, found with hypercarbic respiratory failure and put on BiPAP. X-ray notable for left lower lobe pneumonia. Vital signs reviewed, afebrile BP trends normal ranges Lab trends reviewed UTI possible, culture showed contaminant Sepsis, probable pneumonia -Cultures negative, so far, now on oral antibiotics. Delirium with Altered mental status, possibly metabolic, encephalopathy neuro checks, soft wrist restraints on Psych consult appreciate input, patient is much calm her on Seroquel and Haldol when necessary She still has pleasant confusion and is very talkative this morning. Some of her conversation makes sense, some of it doesn't Acute renal injury, possibly secondary to sepsis Rhabdomyolysis, trends improving for him in today -Renal function improved Continue Accu-Cheks before meals and at bedtime and insulin therapy as needed HTN, uncontrolled initially but now controlled ranges with medical management continue with PRN BP meds Continue with plan for DVT prophylaxis Continue a Protonix for GI prophylaxis Monitor bowel regimen, D/W Dr. Sinclair, seen on his behalf No family present Discharge planning when patient is stable, will have to be off of restraints at least 24 hours before discharge (Alida Lea) Will need input from psych for her medical management and possible discharge planning. (Alida Lea) Assessment/Plan Patient seen and examined as above Plan of care discussed with CHARGER TESTER Discussed with RN. Advised her to call psych if they can accept patient. Patient is off of restraints from today Explained to the patient. Patient is alert and oriented she is in the hospital sheis in an year and month as well, but pleasantly confused. (Kimberly Sinclair MD) Problem Qualifiers (1) Altered mental status: Qualified Code: R40.0 - Somnolence (2) Rhabdomyolysis: Qualified Code: M62.82 - Non-traumatic rhabdomyolysis (3) Chronic back pain: Qualified Code: M54.9 - Chronic back pain, unspecified back location, unspecified back pain laterality (4) PNA (pneumonia): Qualified Code: J18.1 - Pneumonia of left lower lobe due to infectious organism (5) COPD (chronic obstructive pulmonary disease): Qualified Code: J44.9 - Chronic obstructive pulmonary disease, unspecified COPD type (6) Acute renal failure: Qualified Code: N17.9 - Acute renal failure, unspecified acute renal failure type Alida Lea Nov 09, 2016 11:31 Kimberly Sinclair MD Nov 09, 2016 12:11
--- NOTE | 2016-11-09 13:30 | HHI.PYPN ---
Subjective Remarks Patient was seen today for psychiatric reevaluation, patient continues to be disorganized, confused, with periods of lucidity, disoriented in place, she says [place], but fully oriented in person and time. Patient can answer correctly most of our questions, but she becomes tangential and derails easily from main topic become is very disorganized. She denies suicidal and homicidal ideation, she denies visual and auditory hallucinations. Patient is is still restrained in 2 due to episodic agitation and aggressive behavior. Review of Systems Other No somatic complaints at this moment Objective Alert: Yes [place]: Person, Date Mood: Agitated Affect: Labile Memory Intact: Immediate, Recent Hallucinations: Other (no hallucinations observed or reported) Delusions: No Delusion Type: Other Suicidal: Ideation (no SI) Homicidal: Ideation (no HI) Insight/Judgment Poor Vitals/IOs Vital Signs Date Time Temp Pulse Resp B/P Pulse Ox O2 Delivery O2 Flow Rate FiO2 11/09/16 12:08 Room Air 11/09/16 12:00 97.4 74 18 103/65 96 11/05/16 21:06 21 Intake and Output 11/08/16 11/08/16 11/09/16 08:00 16:00 00:00 Intake Total 360 ml 480 ml 280 ml Output Total 425 ml Balance 360 ml 55 ml 280 ml Assessment & Plan Problem List: (1) Delirium due to another medical condition Assessment & Plan: Patient's continue to be acutely psychotic, disorganized, agitated at times. Will increase Seroquel 100mg a.m. and 200 mg at bedtime for psychotic symptoms. Patient might benefit of transfer to med psych unit for closer observation and monitoring of behavior and thought process. ICD Code: F05 Assessment & Plan Estimated LOS: days Justification for Cont. Inpt. Patient might benefit of admission in med psych/unit for stabilization of psychosis. Elkin Gutierrez MD Nov 09, 2016 13:30
[2016-11-09] MEDS ORDERED: QUEtiapine FUMARATE 100 MG TAB PO SCH (21:00)
[2016-11-10] MEDS: HEPARIN SODIUM - SQ 10,000 UNITS/ML VIAL SQ SCH ×2 (00:04→09:45)
[2016-11-10] MEDS: DIAZEPAM 10 MG TAB PO SCH ×2 (00:04→05:30)
[2016-11-10] MEDS: INSULIN NovoLIN REGULAR SUPPLEMENTAL SCALE SQ SCH ×3 (00:07→10:06)
[2016-11-10 03:50] VITALS: BP 126/75; PULSE 73; RESP 20; TEMP 97.8; O2SAT 97
[2016-11-10] MEDS: CHLORHEXIDINE GLUCONATE 2 % 1 PACK (2 CLOTHS) TOP SCH (04:00)
[2016-11-10 08:00] VITALS: BP 128/83; PULSE 81; RESP 20; TEMP 98.1; O2SAT 98
[2016-11-10] MEDS ORDERED: QUEtiapine FUMARATE 100 MG TAB PO SCH (09:00)
[2016-11-10] MEDS: DOCUSATE SODIUM 50 MG/SENNA 8.6 MG TAB PO SCH (09:42)
[2016-11-10] MEDS: PANTOPRAZOLE SODIUM 40 MG VIAL IV SCH (09:42)
[2016-11-10] MEDS: amLODIPine BESYLATE 5 MG TAB PO SCH (09:42)
[2016-11-10] MEDS: AZITHROMYCIN 250 MG TAB PO SCH (09:42)
[2016-11-10] MEDS: LISINOPRIL 5 MG TAB PO SCH (09:42)
[2016-11-10] MEDS: CEFUROXIME AXETIL 500 MG TAB PO SCH (09:42)
[2016-11-10] MEDS: METOPROLOL TARTRATE 25 MG TAB PO SCH (09:43)
[2016-11-10] MEDS: SODIUM CHLORIDE 0.9% FLUSH 10 ML FLUSH SCH (09:43)
--- NOTE | 2016-11-10 11:31 | HHI.PR ---
Subjective Subjective Remarks drowsy, but awakens restriants off delirium continues (Alida Lea) Review of Systems Constitutional Constitutional: Fatigue, Weakness Constitutional Remarks Limited ROS assessment secondary to altered mental status (Alida Lea ) Musculoskeletal MS: Weakness (generalized, soft wrist restraints on) (Alida Lea) Psychiatric Psychiatric: Agitation Psychiatric Remarks delirium, psychotic (Alida Lea) Vitals/Results Intake & Output 11/09/16 11/09/16 11/10/16 15:00 23:00 07:00 Intake Total 720 ml 100 ml 2 ml Output Total 720 ml 600 ml Balance 0 ml 100 ml -598 ml Intake Oral 720 ml 100 ml IV Total 2 ml Output Urine Total 720 ml 600 ml # Voids 1 # Bowel Movements 0 Vital Signs Vital Signs Date Time Temp Pulse Resp B/P Pulse Ox O2 Delivery O2 Flow Rate FiO2 11/10/16 08:00 98.1 81 20 128/83 98 11/10/16 03:50 97.8 73 20 126/75 97 11/10/16 00:25 Room Air 11/09/16 23:55 97.6 75 18 114/75 97 11/09/16 20:00 75 11/09/16 19:45 98.2 78 18 120/71 96 11/09/16 12:08 Room Air 11/09/16 12:00 97.4 74 18 103/65 96 (Alida Lea) CBC/BMP: 11/06/16 0355 11/06/16 0355 Physical Exam General General Appearance: Well Developed, No Acute Distress, Comfortable, Anxious, Obese Appearance Remarks Soft wrist restraints on, trying to get out of the bed (Alida Lea) Eyes Eye Exam: Pupils Equal, Pupils Reactive (Alida Lea) Ears & Nose Ears & Nose Exam: Nasal Mucosa [place] (Alida Lea) Throat Throat Exam: Oral Mucosa [place] & Moist (Alida Lea) Neck Neck Exam: Neck Supple, Trachea Midline (Alida Lea) Pulmonary Resp Exam: Clear Bilaterally, No Distress, Diminished Breath Sounds (Winfield, Alida M. BOLOGNA MAKER) Cardiology CV Exam: Regular, Good Perfusion, Tachycardia (LeonoraAlida M. BOLOGNA MAKER) Gastrointestinal/Abdomen GI Exam: Soft, Non-Tender, Bowel Sounds Present, Non-Distended (Winfield,Susan M. BOLOGNA MAKER) Musculoskeletal MS Exam: Joints Intact (WinfieldAlida M. BOLOGNA MAKER) Integumentary Skin Exam: Warm, Dry (LeonoraAlida M. BOLOGNA MAKER) Extremeties Extremities Exam: No Edema, Pedal Pulses Palpable (Leonora,Susan M. BOLOGNA MAKER) Neurologic Neuro Exam: Awake, Speech Clear, Moving All Extremities, No Focal Deficits Neuro Remarks Altered mental status pleasant (WinfieldAlida M. BOLOGNA MAKER) VTE Prophylaxis VTE Prophylaxis Device: SCDs VTE Prophylaxis Meds: Heparin (WinfieldAlida M. BOLOGNA MAKER) PUD Prophylasis PUD Prophylaxis: Protonix (LeonoraAlida M. BOLOGNA MAKER) Assessment/Plan Problem List: (1) Altered mental status (2) Rhabdomyolysis (3) Anxiety (4) Obesity (5) Chronic back pain (6) PNA (pneumonia) (7) COPD (chronic obstructive pulmonary disease) (8) Acute renal failure Assessment/Plan Vital signs reviewed, afebrile BP trends normal ranges Lab trends reviewed UTI possible, culture showed contaminant, no symptoms Sepsis, probable pneumonia, NO SOB, stable -Cultures negative, so far, now on oral antibiotics. Delirium with Altered mental status, possibly metabolic, encephalopathy drowsy, but will respond to verbal stimuli. Agitates easily . Awaken and was disoriented to place, person, time and situation. Psych consult appreciate input, medical management. OK to transfer to [facility]. Acute renal injury, possibly secondary to sepsis Rhabdomyolysis, monitoring labs -Renal function improved Continue Accu-Cheks before meals and at bedtime and insulin therapy as needed HTN, uncontrolled initially but now controlled ranges with medical management continue with PRN BP meds Continue with plan for DVT prophylaxis Continue a Protonix for GI prophylaxis Monitor bowel regimen OK to Transfer to [facility] for further treatment, D/W Dr. Sinclair, seen on his behalf D/W RN, staff (Alida Lea) Assessment/Plan Patient seen and examined as above Medications and labs reviewed Plan of care and above note reviewed with BOLOGNA MAKER Discussed with RN Explained to patient Continue current management Appreciate consultants input Transfer to med /psych unit (Kimberly Sinclair MD) Problem Qualifiers (1) Altered mental status: Qualified Code: R40.0 - Somnolence (2) Rhabdomyolysis: Qualified Code: M62.82 - Non-traumatic rhabdomyolysis (3) Chronic back pain: Qualified Code: M54.9 - Chronic back pain, unspecified back location, unspecified back pain laterality (4) PNA (pneumonia): Qualified Code: J18.1 - Pneumonia of left lower lobe due to infectious organism (5) COPD (chronic obstructive pulmonary disease): Qualified Code: J44.9 - Chronic obstructive pulmonary disease, unspecified COPD type (6) Acute renal failure: Qualified Code: N17.9 - Acute renal failure, unspecified acute renal failure type Alida LeaP Nov 10, 2016 11:31 Kimberly Sinclair MD Nov 10, 2016 15:46
--- NOTE | 2016-11-10 15:22 | HHI.DS ---
Discharge Summary Admission Date Nov 02, 2016 at 01:17 Discharge Date: Nov 10, 2016 Admitting Diagnosis AMS, Rhabdomyolysis, UTI (1) PNA (pneumonia) Diagnosis: Principal (2) Altered mental status Diagnosis: Principal (3) Rhabdomyolysis Diagnosis: Principal (4) Acute renal failure Diagnosis: Principal (5) COPD (chronic obstructive pulmonary disease) Diagnosis: Secondary (6) Anxiety Diagnosis: Secondary (7) Obesity Diagnosis: Secondary (8) Chronic back pain Diagnosis: Secondary Brief History This was a 50 year old female with past medical history of tobacco abuse, COPD, diabetes, bipolar disease. Patient presented to the emergency room on 2016 after she was found altered and her significant other. Per report, patient apparently had collapsed at work yesterday afternoon. She came home and laid on the couch. Hours later, significant other tried to wake her up but he was not able to do so. EMS was called, patient was put on nonrebreather mask , sats were 98%. In the emergency room she was placed on BiPAP. Patient was noted hypotensive, systolic blood pressure of 76. She was noted with a productive cough. She was given IV bolus of 800 cc. Cultures were obtained. Laboratory workup was completed, patient was noted with rhabdomyolysis, total creatinine kinase of 4453. She was hypokalemic, potassium 3.1. She was noted in acute renal injury, BUN 23, creatinine 3.4. UA positive for urinary tract infection. Urine toxicology positive for opiates and benzodiazepine. Blood alcohol level negative. Lactic acid 0.7. CT of the head was negative. Chest x-ray showed left lower lobe pneumonia. Patient was started on empiric antibiotics. She was admitted to intensive care unit under family and consumer education teacher services. She was somewhat confused and required soft restraints. Patient continued to be very agitated currently she is on cuff restraints and is on a Precedex drip. She's also required Haldol and Ativan. It is not clear if patient has a history of alcohol abuse. Patient doesn't know where she she is , she states she's at a nurse practitioner's office. Difficult to obtain any history. Hospitalist services are requested for medical management. CBC/BMP: 11/06/16 0355 11/06/16 0355 Imaging Last Impressions Liver Ultrasound 11/02/16 0000 Signed Impressions: Service Date/Time: Wednesday, November 02, 2016 19:54 - CONCLUSION: Mildly enlarged spleen, nonspecific. Otherwise within normal limits. The enlargement and fatty infiltration of the liver seen on the prior study appears to have result. Germán Cancino MD Head CT 11/01/162305 Signed Impressions: Service Date/Time: Wednesday, November 02, 2016 05:17 - CONCLUSION: Unremarkable study. Benita Woods MD Chest X-Ray 11/01/162305 Signed Impressions: Service Date/Time: Tuesday, November 01, 2016 23:45 - CONCLUSION: Left lower lobe pneumonia. Benita Woods MD PE at Discharge Soft wrist restraints on, trying to get out of the bed Eyes Eye Exam: Pupils Equal, Pupils Reactive Ears & Nose Ears & Nose Exam: Nasal Mucosa [place] Throat Throat Exam: Oral Mucosa [place] & Moist Neck Neck Exam: Neck Supple, Trachea Midline Pulmonary Resp Exam: Clear Bilaterally, No Distress, Diminished Breath Sounds Cardiology CV Exam: Regular, Good Perfusion, Tachycardia Gastrointestinal/Abdomen GI Exam: Soft, Non-Tender, Bowel Sounds Present, Non-Distended Musculoskeletal MS Exam: Joints Intact Integumentary Skin Exam: Warm, Dry Extremeties Extremities Exam: No Edema, Pedal Pulses Palpable Neurologic Neuro Exam: Awake, Speech Clear, Moving All Extremities, No Focal Deficits Neuro Remarks Altered mental status pleasant VTE Prophylaxis VTE Prophylaxis Device: SCDs VTE Prophylaxis Meds: Heparin PUD Prophylasis PUD Prophylaxis: Protonix Hospital Course THese are the diagnosis to treat patient during hospital stay. (1) Altered mental status (2) Rhabdomyolysis (3) Anxiety (4) Obesity (5) Chronic back pain (6) PNA (pneumonia) (7) COPD (chronic obstructive pulmonary disease) (8) Acute renal failure Vital signs reviewed every 4 hrs, and plan of care adjusted. Lab trends reviewed daily and adjust care accordingly UTI possible, culture showed contaminant. No further treatment needed. Patient denied any dysuria Sepsis, probable pneumonia, NO SOB, stable -Cultures negative, so far, now on oral antibiotics. Delirium with Altered mental status, possibly metabolic, encephalopathy vs psychosis. drowsy, but will respond to verbal stimuli. Agitates easily . Awaken and was disoriented to place, person, time and situation. Psych consult appreciate input, medical management. Patient required soft wrists restraint for her safety but was removed day of DC. Seroquel was started and adjusted, along with Haldol, but patient continued to delirious and psychotic. It was felt she would benefit in the medical psy facility since this is a new behavior for her. Patient was working until her illness. Acute renal injury, possibly secondary to sepsis Rhabdomyolysis, monitoring labs -Renal function improved with IVFs Continue Accu-Cheks before meals and at bedtime and insulin therapy as needed for DM, 2 HTN, uncontrolled initially but now controlled ranges with medical management continue with PRN BP meds Continue with plan for DVT prophylaxis Continue a Protonix for GI prophylaxis Monitor bowel regimen OK to Transfer to medical psy for further treatment, since patient is medically stable. Case discussed daily with Dr. Sinclair, seen on his behalf and the staff. Pt Condition on Discharge: Fair Discharge Instructions Speech Therapy-Diet Recommends: Pureed Medication Profile: Unable to Obtain Active Prescriptions or Reported Meds Alida Lea Nov 10, 2016 15:22
== END 2016-11-10 11:30 | DRG 871 ==
LOC: NEPC 22:48 → NEDA 11-02 01:17 → HIMN 11-02 05:30 → N04A 11-07 20:10
PROVIDERS: ADMIT Internal Medicine Critical Care Medicine; ATTEND Internal Medicine Critical Care Medicine
PROC: 5A09357 Assistance with Respiratory Ventilation, Less than 24 Consecutive Hours, Continuous Positive Airway Pressure (ICD-10-PCS; principal; 2016-11-02)
DX: A41.9 Sepsis, unspecified organism (principal); J18.9 Pneumonia, unspecified organism; J96.92 Respiratory failure, unspecified with hypercapnia; G93.41 Metabolic encephalopathy; N17.9 Acute kidney failure, unspecified; E87.2 Acidosis; N39.0 Urinary tract infection, site not specified; M62.82 Rhabdomyolysis; J44.1 Chronic obstructive pulmonary disease with (acute) exacerbation; J44.0 Chronic obstructive pulmonary disease with (acute) lower respiratory infection; F05 Delirium due to known physiological condition; I25.10 Atherosclerotic heart disease of native coronary artery without angina pectoris; I10 Essential (primary) hypertension; E66.9 Obesity, unspecified; F31.9 Bipolar disorder, unspecified; E78.5 Hyperlipidemia, unspecified; G89.29 Other chronic pain; M54.9 Dorsalgia, unspecified; E11.9 Type 2 diabetes mellitus without complications; F17.210 Nicotine dependence, cigarettes, uncomplicated; E87.6 Hypokalemia; Z78.1 Physical restraint status; I25.2 Old myocardial infarction; F41.9 Anxiety disorder, unspecified; R44.1 Visual hallucinations
CPT/HCPCS: 36600; 51702; 70450; 71010; 76705; 76937; 80048; 80053; 80307; 81001; 82140; 82533; 82550; 82552; 82805; 82948; 83605; 83690; 83735; 83880; 84100; 84443; 84484; 84703; 85025; 85027; 85610; 85730; 86140; 87040; 87086; 87449; 87641; 93005; 94002; 94003; 94640; 94664; 96365; 96372; 96374; 96375; 96376; C9113; C9399; J0171; J0360; J0456; J1200; J1630; J1644; J2060; J2405; J2920; J2930; J3370; J3480; J3486; J7030; J7040; J7050

== ENCOUNTER 2016-11-10 11:19 | Inpatient (IN) | payer MEDICARE, OTHER ==
[~2016-11-10] VITALS: Ht 175.3 cm; Wt 79.0 kg
--- NOTE | 2016-11-10 12:18 | HHI.HP ---
Provisional Diagnosis Admission Date Nov 10, 2016 at 11:33 [place]. Unspecified psychosis Certification of Person's Competence To Provide Express and Informed Consent I have personally examined Jeanie Hutchison , a person being served at [facility] on, Nov 10, 2016 12:08. Express and informed consent means consent voluntarily given in writing, by a competent person, after sufficient explanation and disclosure of the subject matter involved to enable the person to make a knowing and willful decision without any element of force, fraud, deceit, duress, or other form of constraint or coercion. This person is 18 years of age or older, is not now known to be incompetent to consent to treatment with a guardian advocate, and does not have a health care surrogate or proxy currently making medical treatment decisions. I have found this person to be one of the following: [] Competent to provide express and informed consent, as defined above, for voluntary admission to this facility and is competent to provide express and informed consent for treatment. He/she has the consistent capacity to make well reasoned, willful, and knowing decisions concerning his or her medical or mental health treatment. The person fully and consistently understands the purpose of the admission for examination/placement and is fully capable of personally exercising all rights assured under [place] [] Incompetent to provide express and informed consent to voluntary admission, and this is incompetent to provide express and informed consent to treatment. The person must be transferred to involuntary status and a petition for a guardian advocate filed with the Circuit Court. [X] Refusing to provide express and informed consent to voluntary admission but is competent to provide express and informed consent for treatment. The person must be discharged or transferred to involuntary status. Form shall be completed within 24 hours of a person's arrival at the receiving facility and filed in the clinical record of each person: 1. Admitted on a voluntary basis 2. Permitted to provide express and informed consent to his/her own treatment 3. Allowed to transfer from involuntary to voluntary status 4. Prior to permitting a person to consent to his or her own treatment after having been previously found incompetent to consent to treatment. History of Present Illness Capacity: Has Capacity HPI 07/11/2016 The patient is a 50-year-old woman,unknown psychic history, no collateral information at the moment, admitted with altered mental status, found with hypercarbic respiratory failure and put on BiPAP. X-ray notable for left lower lobe pneumonia. Admitted due to Sepsis, secondary to pneumonia Pneumonia, Altered mental status, possibly metabolic, CT of the head negative. Acute renal injury, possibly secondary to sepsis, Rhabdomyolysis, COPD, Hypercarbic respiratory failure now resolved. Consulted to psychiatry due to altered mental status. QTC 459. collateral from Demetri Burciaga, , could not be obtained. On psychiatric evaluation today patient is found restrained in 2 points, disorganized, poorly cooperative. Patient is oriented in place, but disoriented in time. She knows that she is at [facility] in [place], but she things that she is in August 1999. Patient has fluctuation of consciousness, with periods of lucidity Marked disorganized speech. Patient is not able to provide reliable information for the psychiatric assessment at this moment. However, she described her mood as optimistic, denies suicidal or homicidal ideation. She seems to be internally stimulated, probably having visual hallucinations, she says that she saw 5 people in the room at the moment of the evaluation. However, she does not seems to be distressed by perceptual disturbances. She denies psychiatric history, she denies previous suicidal attempts, she denies taking outpatient psychotropics. Unfortunately, no collateral information could be obtained. 11/09/2016 Patient was seen today for psychiatric reevaluation, patient continues to be disorganized, confused, with periods of lucidity, disoriented in place, she says that [place], but fully oriented in person and time. Patient can answer correctly most of our questions , but she becomes tangential and derails easily from main topic become is very disorganized. She denies suicidal and homicidal ideation, she denies visual and auditory hallucinations. Patient is is still restrained in 2 due to episodic agitation and aggressive behavior. 11/10/2016 today on psychiatric reevaluation patient seems to be a little bit better, she recognized me from yesterday, she kept requesting to be discharged, she is not agitated, she is not restrained, but continues to be tangential, with disorganized speech and flight of ideas. She denies suicidal or homicidal ideation, she denies visual and auditory hallucinations. She is paranoid toward nurses stating that they have been stealing her money and "my hair". Patient is partially oriented, she is still think that she is in the mall and people around are buying clothes, she is oriented in time. Review of Systems Constitutional: DENIES: Diaphoretic episodes, Fatigue, Fever, Weight gain, Weight loss, Chills, Dizziness, Change in appetite, Night Sweats Endocrine: DENIES: Abnorml menstrual pattern, Heat/cold intolerance, Polydipsia , Polyuria, Polyphagia Ears, nose, mouth, throat: DENIES: Tinnitus, Hearing loss, Vertigo, Nasal discharge, Oral lesions, Throat pain, Hoarseness, Ear Pain, Running Nose, Epistaxis, Sinus Pain, Toothache, Odynophagia Hematologic/lymphatic: DENIES: Bruising, Lymphadenopathy Immunologic/allergic: DENIES: Eczema, Urticaria Neurologic: DENIES: Abnormal gait, Headache, Localized weakness, Paresthesias, Seizures, Speech Problems, Tremor, Poor Balance Psychiatric: COMPLAINS OF: Hallucinations, Delusions, DENIES: Anxiety, Confusion, Mood changes, Depression, Agitation, Suicidal Ideation, Homicidal Ideation Substance Abuse History Drugs/Alcohol past 12 months Patient denies the use of illicit drugs and alcohol Past Family Social History Coded Allergies: Baclofen (Verified Allergy, Severe, HIVES, BLISTERS, VOMITING, 11/01/16) Codeine (Verified Allergy, Severe, 11/01/16) Iodinated Contrast Media (Verified Allergy, Severe, 11/01/16) Tramadol (Verified Allergy, Severe, Hives, BLISTERS, 11/01/16) Iodine (Verified Allergy, Unknown, UNKNOWN REACTION, 11/01/16) Penicillin (Verified Allergy, Unknown, UNKNOWN REACTION, 11/01/16) Unable to Obtain Active Prescriptions or Reported Meds Physical Exam Lab Results Mental Status Examination Appearance woman, disheveled, [facility], older than his stated age, superficially cooperative Speech: Rapid, Tangential Orientation: Person, Time Memory: Impaired (describe) Thought Process: Circumstantial, Loose Association Thought Content: Bizarre thinking, Paranoid Hallucination Type: None Attention and Concentration: Good Suicidal Ideation: No Previous Suicide Attempts: No Homicidal Ideation: No Previous Homicide Attempts: No Insight: Poor Judgment: Poor Affect: Irritable Mood: Angry Motor Activity: Normal gait Assessment & Plan Problem List: (1) Delirium due to another medical condition Assessment & Plan: On psychiatric evaluation today the patient presents disorganized thought and behavior, agitation, tangentiality, loosening of associations, with improved fluctuation of consciousness and attention span. Partially oriented, disoriented in place, oriented in time. She presents some periods of lucidity, but most of the time she seems to have impaired contact to with reality. Unclear if current presentation is due to persistent delirium related with underlying medical conditions, or it is related with a primary major psychiatrically decompensation. Patient is psychiatric admission for stabilization. Will consult medicine to continue medical workup. We'll consult psychiatry for second opinion. Continue Seroquel 100 mg a.m. and 200 mg at bedtime. production staff worker intervention for psychosocial assessment, collateral information, individual and group therapy. ICD Code: F05 Assessment & Plan Estimated LOS: days Elkin Gutierrez MD Nov 10, 2016 12:18
[2016-11-10] MEDS ORDERED: ACETAMINOPHEN 325 MG TAB PO PRN (12:30)
[2016-11-10] MEDS: NICOTINE 21 MG/24 HR PATCH T-DERMAL SCH (12:30)
[2016-11-10] MEDS ORDERED: LORazepam 2 MG/ML VIAL IM PRN ×2 (12:30)
[2016-11-10] MEDS ORDERED: LORazepam 0.5 MG TAB PO PRN (12:30)
[2016-11-10] MEDS ORDERED: ALUMINUM/MAGNESIUM/SIMETH 30 ML CUP PO PRN (12:30)
[2016-11-10] MEDS ORDERED: MAGNESIUM HYDROXIDE SUSP 30 ML CUP PO PRN (12:30)
[2016-11-10 13:15] VITALS: BP 152/75; PULSE 73; RESP 18; TEMP 97.6; O2SAT 95
--- NOTE | 2016-11-10 15:05 | PD.CONS ---
Provisional Diagnosis Admission Date Nov 10, 2016 at 11:33 [place] I. Unspecified psychosis History of Present Illness Service Psychiatry Consult Requested By Primary Care Physician George Santiago, [facility] 07/11/2016 The patient is a 50-year-old woman,unknown psychic history, no collateral information at the moment, admitted with altered mental status, found with hypercarbic respiratory failure and put on BiPAP. X-ray notable for left lower lobe pneumonia. Admitted due to Sepsis, secondary to pneumonia Pneumonia, Altered mental status, possibly metabolic, CT of the head negative. Acute renal injury, possibly secondary to sepsis, Rhabdomyolysis, COPD, Hypercarbic respiratory failure now resolved. Consulted to psychiatry due to altered mental status. QTC 459. collateral from Demetri Burciaga, , could not be obtained. On psychiatric evaluation today patient is found restrained in 2 points, disorganized, poorly cooperative. Patient is oriented in place, but disoriented in time. She knows that she is at [facility] in [place], but she things that she is in August 1999. Patient has fluctuation of consciousness, with periods of lucidity Marked disorganized speech. Patient is not able to provide reliable information for the psychiatric assessment at this moment. However, she described her mood as optimistic, denies suicidal or homicidal ideation. She seems to be internally stimulated, probably having visual hallucinations, she says that she saw 5 people in the room at the moment of the evaluation. However, she does not seems to be distressed by perceptual disturbances. She denies psychiatric history, she denies previous suicidal attempts, she denies taking outpatient psychotropics. Unfortunately, no collateral information could be obtained. 11/09/2016 Patient was seen today for psychiatric reevaluation, patient continues to be disorganized, confused, with periods of lucidity, disoriented in place, she says that [place] [facility] [place] [facility] [place], but fully oriented in person and time. Patient can answer correctly most of our questions , but she becomes tangential and derails easily from main topic become is very disorganized. She denies suicidal and homicidal ideation, she denies visual and auditory hallucinations. Patient is is still restrained in 2 due to episodic agitation and aggressive behavior. 11/10/2016 today on psychiatric reevaluation patient seems to be a little bit better, she recognized me from yesterday, she kept requesting to be discharged, she is not agitated, she is not restrained, but continues to be tangential, with disorganized speech and flight of ideas. She denies suicidal or homicidal ideation, she denies visual and auditory hallucinations. She is paranoid toward nurses stating that they have been stealing her money and "my hair". Patient is partially oriented, she is still think that she is in the mall and people around are buying clothes, she is oriented in time. 11/10/16 Above note dictated by Dr. Ruby reviewed and agreed with. Patient is a 50- year-old white female seen in her room with RN. Patient showing rapid pressured speech markedly disorganized delusional and paranoid. Acknowledging noncompliance with medication. Patient has been admitted to Dr. Ruby service under the Verma act. Dr. Ruby has signed first opinion petition supporting Verma act. I agree. Patient meets criteria for involuntary psychiatric hospitalization under the Verma act. Thus I'll cosign second opinion petition supporting Verma act Past Family Social History Coded Allergies: Baclofen (Verified Allergy, Severe, HIVES, BLISTERS, VOMITING, 11/01/16) Codeine (Verified Allergy, Severe, 11/01/16) Iodinated Contrast Media (Verified Allergy, Severe, 11/01/16) Tramadol (Verified Allergy, Severe, Hives, BLISTERS, 11/01/16) Iodine (Verified Allergy, Unknown, UNKNOWN REACTION, 11/01/16) Penicillin (Verified Allergy, Unknown, UNKNOWN REACTION, 11/01/16) Unable to Obtain Active Prescriptions or Reported Meds Current Medications Medications (Trade) Dose Ordered Sig/Tana Route Start Time Stop Time Status Last Admin (Ativan) 1 mg Q6H PRN PO 11/10/16 12:30 (Ativan Inj) 1 mg Q6H PRN IM 11/10/16 12:30 (Tylenol) 650 mg Q4H PRN PO 11/10/16 12:30 (Milk Of Magnesia Liq) 30 ml DAILY PRN PO 11/10/16 12:30 (Mag-Al Plus Susp Liq) 30 ml Q6H PRN PO 11/10/16 12:30 (Habitrol 21 Mg Patch.24 Hr) 1 patch DAILY T-DERMAL 11/10/16 12:30 Miscellaneous Information 1 HS T-DERMAL 11/10/16 21:00 Physical Exam Vital Signs Vital Signs Date Time Temp Pulse Resp B/P Pulse Ox O2 Delivery O2 Flow Rate FiO2 11/10/16 13:15 97.6 73 18 152/75 95 Mental Status Examination Speech: Rapid, Tangential Orientation: Person, Time Memory: Impaired (describe) Thought Process: Circumstantial, Loose Association Thought Content: Bizarre thinking, Paranoid Hallucination Type: None Attention and Concentration: Good Suicidal Ideation: No Previous Suicide Attempts: No Homicidal Ideation: No Previous Homicide Attempts: No Insight: Poor Judgment: Poor Affect: Irritable Mood: Angry Motor Activity: Normal gait Assessment & Plan Problem List: (1) Delirium due to another medical condition ICD Code: F05 Assessment & Plan Estimated LOS: Germán Thompson MD Nov 10, 2016 15:05
--- NOTE | 2016-11-10 18:30 | MB ---
cc: GARRICK SINCLAIR DATE OF CONSULTATION 11/10/2016 DATE OF 1965 REASON FOR CONSULTATION Medical management. HISTORY OF PRESENT ILLNESS This is a 50-year-old white female who had been in her usual state of health up until November 02, 2016. The patient had gone to work and came home around 4:30 p.m. according to the record. The patient was not feeling well, so she laid down on the couch and her roommate later on that evening was unable to arouse her. Ambulance service was called to come and evaluate the patient and brought her to the emergency room for further evaluation. When on arrival EMS noted that the patient was still suffering from altered mental status, was hard to arouse, oxygen level was low and was placed on a nonrebreather mask. She was admitted to the hospital with altered mental status, rhabdomyolysis and urinary tract infection and possible pneumonia. The patient also has suffered from COPD, tobacco dependency and obesity. The patient was hydrated and stabilized from a medical standpoint with her rhabdomyolysis and other medical comorbidities, but continued to struggle with her altered mental status. The patient had periods of delirium which continued to affect her safety. She was restrained with soft wrist restraints and psychiatric service was consulted. The patient was medically managed and started on Seroquel but still was suffering from psychosis. Please see the psychiatric note. Hospitalist service has been called to assist with her medical management. PAST MEDICAL HISTORY Medical history includes: 1. Chronic obstructive pulmonary disease. 2. Coronary artery disease. 3. Tobacco user. 4. Hypertension. 5. Obesity. 6. Hyperlipidemia. 7. Bipolar disorder. 8. Chronic back pain. 9. Diabetes mellitus. PAST SURGICAL HISTORY All of this is according to the records since the patient is unable to give his information. 1. Appendectomy. 2. Tonsillectomy. 3. Facial reconstruction. 4. Laparoscopy. ALLERGIES INCLUDE BACLOFEN, CODEINE, CONTRAST MEDIA, IODINE, PENICILLIN AND TRAMADOL. MEDICATIONS Current medications: 1. Pepcid. 2. Heparin subcutaneous. 3. Stool softeners. 4. Laxatives as needed. 5. Lactulose for severe constipation. 6. Azithromycin. 7. Ancef. 8. IV steroids. SOCIAL HISTORY The patient currently is a smoker. There is no known illicit drug use or alcohol use for now. REVIEW OF SYSTEMS Unable to obtain secondary to the patient's altered mental status. PHYSICAL EXAMINATION VITAL SIGNS: Temperature is 98.1, pulse 81, respiratory rate 20, blood pressure 128/83. O2 saturation 98% on room air. GENERAL: The patient is lethargic but responds to loud, verbal stimuli. When awakened the patient did not know where she was or how long she had been in the hospital. She became agitated easily and was calling out for different names of people who were not there. SKIN: Pale, pink mucous membranes, warm and dry. HEENT: Atraumatic, normocephalic. Pupils equal, round, reactive to light and accommodation. NECK: Supple. CARDIOVASCULAR: S1-S2. Regular rate and rhythm. She had no edema and her pulses were intact. The lower extremities were warm. LUNGS: Low to adequate volumes but essentially clear anteriorly and posteriorly with no wheezes, rhonchi or rales. ABDOMEN: Obese, soft and nontender. Nondistended. MUSCULOSKELETAL: Randomly moved her extremities but unable to obtain purposeful movement on command. NEUROLOGIC: She was lethargic but agitated easily as stated above. SKIN: Pale pink, warm and dry. LABORATORY DATA Diagnostic data, WBC count on 11/06/2016 was 12.5, hemoglobin 15.3, hematocrit 45.6, platelet count 184. On 11/06 her sodium was 143, potassium 3.8, chloride 106, carbon dioxide 27.6. Abnormals were random glucose at 146, calcium 9.4. Her creatine kinase was decreased to 409 with normal CK percentages on 11/07/2016. Random cortisol level was 23. Urine culture was indicated from a large amount of leukocyte esterase, moderate amount of occult blood, hazy, yellow urine but microbiology showed this was possibly a contaminant. Blood cultures were negative that were done initially in the hospital setting. ASSESSMENT AND PLAN 1. Status post and recent rhabdomyolysis. 2. Delirium, unspecified. The patient will be cared for per the psychiatric services. 3. Diabetes mellitus type 2, uncontrolled. 4. Chronic obstructive pulmonary disease. 5. History of renal failure. The plan will be medical management per the hospitalist team which includes monitoring labs and any medical symptoms related to her current illness. Her course of treatment will depend on our findings. Her psychiatric delirium will be managed per the psychiatry team. Thank you very much for this consultation. Dictated by: DEVIN Toscano Garrick Sinclair MD JP/KK /3:41 PM /5:59 PM PT SEEN AND EXAMINED ABOVE ON DAY OF ADMISSION WITH RN CHART WAS REVIEWED MEDS LABS AND RAD DATA REVIWED AMANDEEP PT PLAN OF CARE DW TEACHING DIETITIAN COND GUARDED MTDD
[2016-11-10 19:08] VITALS: BP 160/77; PULSE 88; RESP 16; TEMP 98.7; O2SAT 97
[2016-11-10] MEDS: REMOVE OLD NICODERM (NICOTINE) PATCH T-DERMAL SCH (20:14)
[2016-11-10] MEDS: LORazepam 1 MG TAB PO PRN (20:29)
[2016-11-11 06:11] VITALS: BP 165/97; PULSE 100; RESP 18; TEMP 97.6; O2SAT 97
[2016-11-11] MEDS: NICOTINE 21 MG/24 HR PATCH T-DERMAL SCH (09:00)
[2016-11-11 09:09] LABS: ANION GAP 10 MEQ/L (5-15); BICARBONATE 27.1 MEQ/L (21.0-32.0); BLOOD UREA NITROGEN 12 MG/DL (7-18); CHLORIDE 104 MEQ/L (98-107); POTASSIUM 3.7 MEQ/L (3.5-5.1); SODIUM (NA) 141 MEQ/L (136-145)
[2016-11-11 09:13] LABS: GLOMERULAR FILTRATION RATE 92 ML/MIN (>89)
[2016-11-11 09:19] LABS: LDL CHOLESTEROL 41 MG/DL (0-99)
--- NOTE | 2016-11-11 12:28 | HHI.PYPN ---
Subjective Remarks Patient was seen today for psychiatric reevaluation and along with nurse in Charge and medical student, patient is found sitting in her bed, she is calm, cooperative, but demanding to be discharged. Patient says that she feels much better, that she has been in the hospital now for a long time, she was to go back home to be with her kids and with her . However, patient still disorganized, becomes easily tangential, but redirectable. Thought process is definitely improved, but she continues to be partially disoriented, with impaired concentration and attention span, and also in per executive function. She denies perceptual disturbances, she denies suicidal ideation, she denies homicidal ideation, she denies visual and auditory hallucinations. Patient is oriented in person and time, partially oriented in place, could name and the remember 3 objects at 5 minutes later, draw clock and executive function part of Mini-Mental status. We'll get collateral information from her Darshan Hutchison, who states that the patient is still disorganized, not a baseline and needs more stabilization. He clarifies that he is find with taking her back home once she is stable and does not represent a danger to herself or others. Patient has been compliant with her medications, no significant side effects. Review of Systems Constitutional: DENIES: Diaphoretic episodes, Fatigue, Fever, Weight gain, Weight loss, Chills, Dizziness, Change in appetite, Night Sweats Endocrine: DENIES: Abnorml menstrual pattern, Heat/cold intolerance, Polydipsia , Polyuria, Polyphagia Eyes: DENIES: Blurred vision, Diplopia, Eye inflammation, Eye pain, Vision loss , Photosensitivity, Double Vision Ears, nose, mouth, throat: DENIES: Tinnitus, Hearing loss, Vertigo, Nasal discharge, Oral lesions, Throat pain, Hoarseness, Ear Pain, Running Nose, Epistaxis, Sinus Pain, Toothache, Odynophagia Respiratory: DENIES: Apneas, Cough, Snoring, Wheezing, Hemoptysis, Sputum production, Shortness of breath Cardiovascular: DENIES: Chest pain, Palpitations, Syncope, Dyspnea on Exertion , PND, Lower Extremity Edema, Orthopnea, Claudication Gastrointestinal: DENIES: Abdominal pain, Black stools, Bloody stools, Constipation, Diarrhea, Nausea, Vomiting, Difficulty Swallowing, Anorexia Genitourinary: DENIES: Abnormal vaginal bleeding, Dysmenorrhea, Dyspareunia, Sexual dysfunction, Urinary frequency, Urinary incontinence, Urgency, Hematuria , Dysuria, Nocturia, Vaginal discharge Musculoskeletal: DENIES: Joint pain, Muscle aches, Stiffness, Joint Swelling, Back pain, Neck pain Integumentary: DENIES: Abnormal pigmentation, Pruritus, Rash, Nail changes, Breast masses, Breast skin changes, Nipple discharge Hematologic/lymphatic: DENIES: Bruising, Lymphadenopathy Immunologic/allergic: DENIES: Eczema, Urticaria Neurologic: DENIES: Abnormal gait, Headache, Localized weakness, Paresthesias, Seizures, Speech Problems, Tremor, Poor Balance Psychiatric: COMPLAINS OF: Confusion, Agitation Objective Alert: Yes [place]: Person, Place, Date, Situation Mood: Agitated Affect: Labile Memory Intact: Immediate, Recent Hallucinations: Other (she denies) Delusions: No Delusion Type: Other (no elicited today) Suicidal: Ideation (no SI) Homicidal: Ideation (no HI) Insight/Judgment Fair Labs Test 11/11/16 07:55 Sodium Level 141 MEQ/L Potassium Level 3.7 MEQ/L Chloride Level 104 MEQ/L Carbon Dioxide Level 27.1 MEQ/L Anion Gap 10 MEQ/L Blood Urea Nitrogen 12 MG/DL Creatinine 0.68 MG/DL Estimat Glomerular Filtration 92 ML/MIN Rate Random Glucose 129 MG/DL Calcium Level 9.0 MG/DL Triglycerides Level 128 MG/DL Cholesterol Level 96 MG/DL LDL Cholesterol 41 MG/DL HDL Cholesterol 29.0 MG/DL Cholesterol/HDL Ratio 3.31 RATIO Vitals/IOs Vital Signs Date Time Temp Pulse Resp B/P Pulse Ox O2 Delivery O2 Flow Rate FiO2 11/11/16 06:11 97.6 100 18 165/97 97 Assessment & Plan Problem List: (1) Delirium due to another medical condition ICD Code: F05 (2) Unspecified psychosis Assessment & Plan: On psychiatric evaluation today the patient continues to be disorganized, tangential, but better oriented, calmer and more cooperative, definitely showing some positive response to psychotropics. We'll continue Seroquel 100 mg a.m. and 200 mg at bedtime. ICD Code: F29 Assessment & Plan Estimated LOS: days Justification for Cont. Inpt. Patient is to continue inpatient level of care due to high risk of decompensation out of structured environment Elkin Gutierrez MD Nov 11, 2016 12:28
--- NOTE | 2016-11-11 15:04 | HHI.PR ---
Subjective Remarks laying across bed. talkative, awke, No facial grimmace afebrile (Alida Lea) Objective Objective Results - Vital Signs Date Time Temp Pulse Resp B/P Pulse Ox O2 Delivery O2 Flow Rate FiO2 11/11/16 06:11 97.6 100 18 165/97 97 11/10/16 19:08 98.7 88 16 160/77 97 I/O 11/10/16 11/10/16 11/10/16 11/11/16 11/11/16 11/11/16 07:00 15:00 23:00 07:00 15:00 23:00 Intake Total 480 ml Output Total 2 ml Balance -2 ml 480 ml Intake Oral 480 ml Output Stool Total 2 ml # Voids 3 (Alida Lea) Result Diagram: 11/11/16 0755 ROS General: Weakness (improved), Other (10 point ROS done. Positives noted.) GI: BM (today) Neuro/MS: Other (chronic back pain) (Alida Lea) Physical Exam Physical Exam PHYSICAL EXAMINATION GENERAL: This is a well-developed, well-nourished female who appears to be in no acute distress. She is alert and awake, talkative HEAD: Normocephalic without any lesion or mass noted. Facial features appear symmetric. OROPHARYNGEAL: Oropharynx without erythema or edema. NECK: Supple. No nuchal rigidity or lymphadenopathy. Trachea midline without deviation. CARDIAC: Regular rhythm, regular rate, S1 and S2 are heard. LUNGS: Clear to auscultation bilaterally. ABDOMEN: Soft, nontender, no organomegaly or masses. Bowel sounds are heard in all four quadrants. No rebound. No guarding. EXTREMITIES: no edema. Pulses equal bilateral. NEUROLOGICAL: Patient mood and affect rambles with converation. No delirium SKIN:Warm and moist (Alida Lea) A/P Assessment and Plan 1. Status post and recent rhabdomyolysis. 2. Delirium, unspecified. The patient will be cared for per the psychiatric services. 3. Diabetes mellitus type 2, uncontrolled. 4. Chronic obstructive pulmonary disease. 5. History of renal failure. vitals and labs reviewed. denies any chest pain, chronic back pain, no acute muscular aches COPD, No SOB, on rm air activity up ad deborah, DM, accuchecks and sliding scale. A1C pending Delirium subsided, patient conversation rambles, but oriented today. Appetite fair to good, bowel regimen normal for now. Formed BM today. DC planning probable tomorrow. D/W nurse D/W pt. D/W Dr. Sinclair, seen on his behalf (Alida Lea) Assessment and Plan Patient seen and examined as above Medications reviewed Plan of care discussed with EXPERIMENTAL PSYCHOLOGIST Discussed with patient She will follow her primary care doctor as outpatient (Kimberly Sinclair MD) Alida Lea Nov 11, 2016 15:04 Kimberly Sinclair MD Nov 11, 2016 16:22
[2016-11-11 15:58] LABS: HEMOGLOBIN A1b 0.7 %; HEMOGLOBIN Ao 83.6 %; HEMOGLOBIN F 2.5 %; HEMOGLOBIN LA1C 2.2 %; HEMOGLOBIN P3 3.9 %
[2016-11-11] MEDS ORDERED: GLUCAGON 1 MG/ML VIAL OTHER PRN (16:30)
[2016-11-11] MEDS ORDERED: DEXTROSE 50% IN WATER 50 ML VIAL(D50) IV PRN (16:30)
[2016-11-11] MEDS: LORazepam 1 MG TAB PO PRN (17:16)
[2016-11-11 17:26] VITALS: BP 155/104; PULSE 117; RESP 17; TEMP 97.8; O2SAT 98
[2016-11-11 19:13] LABS: HEMOGLOBIN A1a 1.3 %
[2016-11-11 19:46] VITALS: BP 176/105; PULSE 126
[2016-11-11] MEDS ORDERED: hydrALAZINE HCL 10 MG TAB PO PRN (20:15)
[2016-11-11] MEDS: INSULIN ASPART SUPPLEMENTAL SCALE SQ SCH (20:50)
[2016-11-11] MEDS: REMOVE OLD NICODERM (NICOTINE) PATCH T-DERMAL SCH (20:51)
[2016-11-11] MEDS ORDERED: QUEtiapine FUMARATE 200 MG TAB PO SCH (21:00)
[2016-11-11 23:19] VITALS: BP 128/67; PULSE 119
[2016-11-12] MEDS: LORazepam 1 MG TAB PO PRN (03:05)
[2016-11-12 05:29] VITALS: BP 155/68; PULSE 104; RESP 17; TEMP 97.6
[2016-11-12] MEDS: INSULIN ASPART SUPPLEMENTAL SCALE SQ SCH ×2 (06:57→11:00)
[2016-11-12] MEDS ORDERED: QUEtiapine FUMARATE 100 MG TAB PO SCH (09:00)
[2016-11-12] MEDS: NICOTINE 21 MG/24 HR PATCH T-DERMAL SCH (09:13)
[2016-11-12] MEDS ORDERED: QUET1TAB9 PO (10:36)
--- NOTE | 2016-11-12 11:07 | HHI.DS ---
Psychiatry Discharge Summary Inpatient Psychiatric care?: Yes Advance Directive: No Reason Not Provided: Due to Patient Condition Mental Health AdvanceDirective: No Health Care Proxy: Yes Admission Admission Date Nov 10, 2016 at 11:33 Admission Diagnosis: (1) Unspecified psychosis ICD Code: F29 Brief History 07/11/2016 The patient is a 50-year-old woman,unknown psychic history, no collateral information at the moment, admitted with altered mental status, found with hypercarbic respiratory failure and put on BiPAP. X-ray notable for left lower lobe pneumonia. Admitted due to Sepsis, secondary to pneumonia Pneumonia, Altered mental status, possibly metabolic, CT of the head negative. Acute renal injury, possibly secondary to sepsis, Rhabdomyolysis, COPD, Hypercarbic respiratory failure now resolved. Consulted to psychiatry due to altered mental status. QTC 459. collateral from Demetri Burciaga, , could not be obtained. On psychiatric evaluation today patient is found restrained in 2 points, disorganized, poorly cooperative. Patient is oriented in place, but disoriented in time. She knows that she is at [facility] in [place], but she things that she is in August 1999. Patient has fluctuation of consciousness, with periods of lucidity Marked disorganized speech. Patient is not able to provide reliable information for the psychiatric assessment at this moment. However, she described her mood as optimistic, denies suicidal or homicidal ideation. She seems to be internally stimulated, probably having visual hallucinations, she says that she saw 5 people in the room at the moment of the evaluation. However, she does not seems to be distressed by perceptual disturbances. She denies psychiatric history, she denies previous suicidal attempts, she denies taking outpatient psychotropics. Unfortunately, no collateral information could be obtained. 11/09/2016 Patient was seen today for psychiatric reevaluation, patient continues to be disorganized, confused, with periods of lucidity, disoriented in place, she says that [place], but fully oriented in person and time. Patient can answer correctly most of our questions , but she becomes tangential and derails easily from main topic become is very disorganized. She denies suicidal and homicidal ideation, she denies visual and auditory hallucinations. Patient is is still restrained in 2 due to episodic agitation and aggressive behavior. 11/10/2016 today on psychiatric reevaluation patient seems to be a little bit better, she recognized me from yesterday, she kept requesting to be discharged, she is not agitated, she is not restrained, but continues to be tangential, with disorganized speech and flight of ideas. She denies suicidal or homicidal ideation, she denies visual and auditory hallucinations. She is paranoid toward nurses stating that they have been stealing her money and "my hair". Patient is partially oriented, she is still think that she is in the mall and people around are buying clothes, she is oriented in time. 11/10/16 Above note dictated by Dr. Ruby reviewed and agreed with. Patient is a 50- year-old white female seen in her room with RN. Patient showing rapid pressured speech markedly disorganized delusional and paranoid. Acknowledging noncompliance with medication. Patient has been admitted to Dr. Ruby service under the Verma act. Dr. Ruby has signed first opinion petition supporting Verma act. I agree. Patient meets criteria for involuntary psychiatric hospitalization under the Verma act. Thus I'll cosign second opinion petition supporting Verma act Tobacco Use In Past 30 Days: 5 or More Cigarettes/Day Alcohol Use: Never Hospital Course Patient was admitted in the bedside, transfer from medical floor. Appropriate safety measure were taken. Initially patient was disorganized, with tangential thinking, disoriented, frequent loosening of associations, but since the beginning and no suicidal, not homicidal, not internally preoccupied, and without any visual or auditory hallucinations. Patient was assessed by social science instructor and psychiatry, he should've psychiatric and psychosocial assessment were completed. She was initiated in psychotropics, individual and group therapy and she showed a very good response without significant side effects. During her hospitalization psychiatric team met with her who was able to let us know was no about patient baseline. During her hospitalization, no agitations, no hostility, no aggressive behavior were reported. Patient was very easy to deal with, the greatest in therapies, interacted appropriately with staff and peers. She was fully compliant with medications. Results Blood Pressure 155 / 68 Vital Signs Date Time Temp Pulse Resp B/P Pulse Ox O2 Delivery O2 Flow Rate FiO2 11/12/16 05:29 97.6 104 17 155/68 11/11/16 17:26 98 Laboratory Tests Test 11/11/16 07:55 Random Glucose 129 MG/DL (74-106) Cholesterol Level 96 MG/DL (120-200) HDL Cholesterol 29.0 MG/DL (40.0-60.0) Laboratory Results Test 11/11/16 07:55 Hemoglobin A1c 5.6 % (4.3-6.0) Triglycerides Level 128 MG/DL (42-150) Cholesterol Level 96 MG/DL (120-200) LDL Cholesterol 41 MG/DL (0-99) HDL Cholesterol 29.0 MG/DL (40.0-60.0) Summary of Procedures No procedures done to Pending results at discharge: No Medications # of Antipsychotic meds at D/C: 1 Approp Antipsych med options 1 - Minimum of three failed multiple trials of monotherapy. 2 - Documented plan to taper to monotherapy due to previous use of multiple meds OR cross-taper in progress at D/C. 3 - Documentation of augmentation of Clozapine. 4 - Justification other than those listed in allowable values 1-3, document here : Discharge Discharge Date: Nov 12, 2016 Discharge Diagnosis: (1) Unspecified psychosis ICD Code: F29 Mental Status Exam at Disch woman, age appearing, [facility], calm, cooperative, talkative, her speech is rapid, but not pressured, at times circumstantial. Her mood is euthymic, affect is congruent with mood. Thought processes circumstantial, goal -directed, thought content devoid of SI, HI, visual and auditory hallucinations , paranoia or delusions. Insight, impulse control, judgment are fair, cognition is fair, patient is oriented 3, but with recognizable recent recalled , executive function impairment. Pt Condition on Discharge: Stable Discharge Disposition: Discharge Home Discharge Instructions Diet Instructions: Heart Healthy Diet Activities you can perform: Regular-No Restrictions Scheduled Appointment: Javier Ramos Appointment Date: Nov 15, 2016 Appointment Time: 7:30am Discharge Time > 30 minutes Discharge/Advance Care Plan Health Problems: (1) Delirium due to another medical condition (2) Unspecified psychosis Goals to promote your health * To prevent worsening of your condition and complications * To maintain your health at the optimal level Directions to meet your goals Take your medications as prescribed Follow your dietary instruction Follow activity as directed Keep your appointments as scheduled Take your immunizations and boosters as scheduled If your symptoms worsen call your PCP, if no PCP go to Urgent Care Center or Emergency Room For 13/12 questions related to your inpatient stay or results of tests pending at discharge, please contact Dr. Elkin Gutierrez at Smoking is Dangerous to Your Health. Avoid second hand smoking Elkin Gutierrez MD Nov 12, 2016 11:07
--- NOTE | 2016-11-12 13:05 | HHI.PR ---
Subjective Remarks laying across bed. talkative, drowsy, but responds No facial grimmace afebrile Objective Objective Results - Vital Signs Date Time Temp Pulse Resp B/P Pulse Ox O2 Delivery O2 Flow Rate FiO2 11/12/16 05:29 97.6 104 17 155/68 11/11/16 23:19 119 128/67 11/11/16 19:46 126 176/105 11/11/16 17:26 97.8 117 17 155/104 98 I/O 11/11/16 11/11/16 11/11/16 11/12/16 11/12/16 11/12/16 07:00 15:00 23:00 07:00 15:00 23:00 Intake Total 480 ml 480 ml 600 ml 480 ml Output Total 2 ml Balance -2 ml 480 ml 480 ml 600 ml 480 ml Intake Oral 480 ml 480 ml 600 ml 480 ml Output Stool Total 2 ml # Voids 3 2 3 Result Diagram: 11/11/16 0755 ROS General: Weakness (improved), Other (10 point ROS done positives noted) GI: Abdominal Pain (occasional), Other Neuro/MS: Other (low back pain occasional chronic) Physical Exam Physical Exam PHYSICAL EXAMINATION GENERAL: This is a well-developed, well-nourished female who appears to be in no acute distress. She is drowsy but responds to verbal stimuli HEAD: Normocephalic OROPHARYNGEAL: Oropharynx without erythema or edema. NECK: Supple. No nuchal rigidity or lymphadenopathy. CARDIAC: Regular rhythm, regular rate, S1 and S2 are heard. LUNGS: Clear to auscultation bilaterally. ABDOMEN: Soft, nontender, no organomegaly or masses. Bowel sounds are heard in all four quadrants. No rebound. No guarding. EXTREMITIES: No edema NEUROLOGICAL: Patient mood and affect without acute anxiety hoping to go home SKIN:Warm and moist A/P Assessment and Plan 1. Status post and recent rhabdomyolysis. 2. Delirium, unspecified. The patient will be cared for per the psychiatric services. 3. Diabetes mellitus type 2, uncontrolled. 4. Chronic obstructive pulmonary disease. 5. History of renal failure. vitals and labs reviewed. denies any chest pain, chronic back pain, COPD, on rm air activity up ad deborah, and in room. He is able to lay flat in bed and sleep DM, accuchecks and sliding scale. Delirium subsided, patient conversation rambles, but is following better today Appetite fair to good, bowel regimen DC planning today, patient is medically stable and should follow-up with PCP D/W nurse D/W pt. D/W Dr. Sinclair, seen on his behalf Alida Lea Nov 12, 2016 13:05
== END 2016-11-12 13:05 | disposition home or self-care (01) | DRG 885 ==
LOC: H4EA 11:33
PROVIDERS: ADMIT Psychiatry & Neurology Psychiatry; ATTEND Psychiatry & Neurology Psychiatry
DX: F29 Unspecified psychosis not due to a substance or known physiological condition (principal); E11.65 Type 2 diabetes mellitus with hyperglycemia; I10 Essential (primary) hypertension; Z91.14 Patient's other noncompliance with medication regimen; I25.10 Atherosclerotic heart disease of native coronary artery without angina pectoris; F17.200 Nicotine dependence, unspecified, uncomplicated; E78.5 Hyperlipidemia, unspecified; M54.9 Dorsalgia, unspecified; G89.29 Other chronic pain; J44.9 Chronic obstructive pulmonary disease, unspecified
CPT/HCPCS: 80048; 80061; 82948; 83036

== ENCOUNTER 2017-05-29 02:32 | Emergency (ER) | payer MEDICARE, MEDICAID ==
[~2017-05-29] VITALS: Ht 172.7 cm; Wt 95.0 kg
[~2017-05-29 02:32] MED LIST changes: -ALBU1AER INH; -ATEN100T7 PO; -DICL50 PO; -LANTUSP SQ; -ORPH100T PO; -PROM25TA5 PO; +QUET1TAB9 PO; -SPIRCAP INH; -SYMB80AE INH; -VALI10TA PO
[2017-05-29 02:38] VITALS: BP 162/96; PULSE 99; RESP 20; TEMP 98; O2SAT 97
[2017-05-29] MEDS ORDERED: RESP: ALBUTEROL 2.5 MG/IPRATROPIUM 0.5 MG NEB (SCH) NEB ONE (02:45)
[2017-05-29] MEDS ORDERED: NITROGLYCERIN 0.4 MG SL 25 TABS/BTL SL ONE (02:45)
[2017-05-29] MEDS ORDERED: SODIUM CHLORIDE 0.9% FLUSH 10 ML FLUSH IVF PRN (02:45)
--- NOTE | 2017-05-29 03:03 | RADRPT ---
EXAM DATE/TIME: 05/29/2017 02:49 [facility] COMPARISON: CHEST SINGLE AP, November 01, 2016, 23:45. INDICATIONS : Chest pain. MEDICAL HISTORY : Myocardial infarction. Hypertension. Chronic obstructive pulmonary disease.Cerebrovascular accident. Diabetes. Bipolar disorder. SURGICAL HISTORY : Cardiac catheterization. Back and neck surgery. ENCOUNTER: Initial ACUITY: 1 day PAIN SCORE: 5/10 LOCATION: Bilateral chest FINDINGS: Single AP view of the chest. Patchy opacity at the left lung base, less prominent than on the compari son study of 11/01/2016. Right lung is clear. Mildly enlarged cardiac silhouette. No evidence of pleur al effusion or pneumothorax. CONCLUSION: Mild patchy lateral left lung base opacity, less prominent than on the comparison study of October 2016. Differential diagnosis is recurrent consolidation/atelectasis versus scarring. Nader Aldana MD on May 29, 2017 at 3:01 Board Certified Radiologist. This report was verified electronically.
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
[2017-05-29 03:10] LABS: AUTOMATED NEUTROPHIL # 4.3 TH/MM3 (1.8-7.7); BASOPHIL % 0.4 % (0.0-2.0); EOSINOPHIL # 0.1 TH/MM3 (0-0.4); EOSINOPHIL % 1.4 % (0.0-4.0); HEMATOCRIT 39.8 % (35.0-46.0); HEMOGLOBIN 13.9 GM/DL (11.6-15.3); LYMPH % 50.3 % (9.0-44.0); LYMPHOCYTE # 5.2 TH/MM3 (1.0-4.8); MEAN CELL VOLUME 91.4 FL (80.0-100.0); MEAN CORPUSCULAR HEMOGLOBIN 31.9 PG (27.0-34.0); MEAN CORPUSCULAR HGB CONC 34.9 % (32.0-36.0); MEAN PLATELET VOLUME 8.9 FL (7.0-11.0); MONO % 6.7 % (0.0-8.0); MONOCYTE # 0.7 TH/MM3 (0-0.9); NEUT % 41.2 % (16.0-70.0); PLATELET COUNT 218 TH/MM3 (150-450); RED BLOOD COUNT 4.36 MIL/MM3 (4.00-5.30); RED CELL DISTRIBUTION WIDTH 13.4 % (11.6-17.2); WHITE BLOOD COUNT 10.4 TH/MM3 (4.0-11.0)
[2017-05-29 03:23] LABS: INTERNATIONAL NORMALIZED RATIO 0.9 RATIO; PROTHROMBIN TIME - PATIENT 9.2 SEC (9.8-11.6)
[2017-05-29 03:34] LABS: BICARBONATE 30.5 MEQ/L (21.0-32.0); BLOOD UREA NITROGEN 16 MG/DL (7-18); CALCIUM 8.1 MG/DL (8.5-10.1); CHLORIDE 105 MEQ/L (98-107); CREATININE 0.91 MG/DL (0.50-1.00); GLOMERULAR FILTRATION RATE 65 ML/MIN (>89); GLUCOSE,RANDOM 113 MG/DL (74-106); MAGNESIUM 2.1 MG/DL (1.5-2.5); SODIUM (NA) 142 MEQ/L (136-145)
[2017-05-29 03:38] LABS: TROPONIN I LESS THAN 0.02 NG/ML (0.02-0.05)
[2017-05-29 04:21] LABS: MONOCYTES 3 % (0-8); NEUTROPHIL # MANUAL DIFF 5.4 TH/MM3 (1.8-7.7); POLYS (SEG NEUTROPHILS) 52 % (16-70)
[2017-05-29 04:22] LABS: LYMPHOCYTES 43 % (9-44)
[2017-05-29] MEDS ORDERED: VENTAER INH (05:45)
[2017-05-29] MEDS ORDERED: MEDR4PAK PO (05:45)
--- NOTE | 2017-05-29 13:43 | EKG ---
Date Performed: 05/29/2017 Time Performed: 02:43:49 PTAGE: 51 years EKG: Sinus rhythm MARKED LEFT AXIS DEVIATION LEFT BUNDLE BRANCH BLOCK ABNORMAL ECG PREVIOUS TRACING : 11/05/2016 11.27 Since previous tracing, PACs no longer present and the hear t rate is slower. DOCTOR: René Falcon Interpretating Date/Time 05/29/2017 13:42:36
== END 2017-05-29 06:45 | disposition home or self-care (01) ==
LOC: NEPC 02:32
DX: J44.9 Chronic obstructive pulmonary disease, unspecified (principal); I44.7 Left bundle-branch block, unspecified; R94.31 Abnormal electrocardiogram [ECG] [EKG]; I10 Essential (primary) hypertension; I25.10 Atherosclerotic heart disease of native coronary artery without angina pectoris; E11.9 Type 2 diabetes mellitus without complications; F31.9 Bipolar disorder, unspecified; I25.2 Old myocardial infarction; F17.210 Nicotine dependence, cigarettes, uncomplicated
CPT/HCPCS: 71045; 80048; 82550; 83735; 83880; 84484; 85007; 85027; 85610; 85730; 93005; 94664; 99284

== ENCOUNTER 2017-07-08 20:40 | Emergency (ER) | payer OTHER, MEDICARE, MEDICAID ==
[~2017-07-08] VITALS: Ht 167.6 cm; Wt 100.0 kg
[~2017-07-08 20:40] MED LIST changes: +MEDR4PAK PO; +VENTAER INH
[2017-07-08 20:50] VITALS: BP 132/66; PULSE 78; RESP 18; TEMP 98.9; O2SAT 97
[2017-07-08] MEDS ORDERED: ACETAMINOPHEN/HYDROcodone 325 MG/5 MG TAB PO ONE (21:00)
[2017-07-08] MEDS ORDERED: ATEN50TA7 PO (21:01)
[2017-07-08] MEDS ORDERED: LORA0.5T PO (21:01)
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
[2017-07-08] MEDS ORDERED: ROBA500T PO (21:59)
[2017-07-08] MEDS ORDERED: DICL75TA PO (21:59)
== END 2017-07-08 22:07 | disposition home or self-care (01) ==
LOC: NEPD 20:40
DX: S16.1XXA Strain of muscle, fascia and tendon at neck level, initial encounter (principal); V49.49XA Driver injured in collision with other motor vehicles in traffic accident, initial encounter; Y92.414 Local residential or business street as the place of occurrence of the external cause; I10 Essential (primary) hypertension; J44.9 Chronic obstructive pulmonary disease, unspecified; E11.9 Type 2 diabetes mellitus without complications; I25.2 Old myocardial infarction; F31.9 Bipolar disorder, unspecified; F17.210 Nicotine dependence, cigarettes, uncomplicated
CPT/HCPCS: 71045; 72040; 72100; 99284

== ENCOUNTER 2017-07-21 00:10 | Emergency (ER) | payer MEDICARE, MEDICAID ==
[~2017-07-21] VITALS: Ht 175.3 cm; Wt 88.0 kg
[~2017-07-21 00:10] MED LIST changes: +ATEN50TA7 PO; +DICL75TA PO; +LORA0.5T PO; -MEDR4PAK PO; -QUET1TAB9 PO; +ROBA500T PO
[2017-07-21 00:16] VITALS: BP 208/131; PULSE 102; RESP 18; TEMP 98.5; O2SAT 98
[2017-07-21] MEDS ORDERED: cloNIDine HCL 0.2 MG TAB PO ONE (01:15)
[2017-07-21 02:59] VITALS: BP 121/75; PULSE 80; RESP 16; O2SAT 97
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
--- NOTE | 2017-07-21 03:18 | PD ---
HPI Chief Complaint: Facial Pain or Swelling Time Seen by Provider: 01:03 Travel History International Travel<30 days: No Contact w/Intl Traveler<30days: No Traveled to known affect area: No History of Present Illness HPI 51-year-old female presents to the emergency department by private transportation for right facial bruising and pain reportedly status post fall 5- 6 days ago. Patient states she was being assisted into RV and tripped over something on the floor that was there to assist with the honors dog. Patient states she had her face and hit her head hard causing her to see black and then stars patient is not certain if she had loss of consciousness but reports she was definitely started with nausea. Due to persistent pain that seems to be worsening according to the patient she decided finally to come to the emergency room for evaluation. Patient reports she took none of her chronic medications noticed a lot of interfere with her exam except for her diabetic medication. Patient also complains of head pain nausea and neck pain. Patient states that she has marked pain with attempted range of motion of the jaw and talking. Does not report any airway issues or anterior neck pain. No palpitations no chest pain no shortness of breath abdominal pain no extremity injury reported. Patient rates her pain 10/10 in intensity. Patient did not see her primary care provider regarding her injuries. PFSH Past Medical History Narrative Medical Diabetes hypertension tobacco use COPD [place] cardiac catheterization appendectomy; nursing notes reviewed Bipolar Disorder: Yes Cardiac Catheterization: Yes (x2) Cardiovascular Problems: Yes (HTN, [place]) COPD: Yes Cerebrovascular Accident: Yes Diabetes: Yes Patient Takes Glucophage: No Diminished Hearing: No Hypertension: Yes Psychiatric: Yes Respiratory: Yes (COPD) Immunizations Current: Yes Tetanus Vaccination: < 5 Years Influenza Vaccination: No ?: Not LMP: 07/07/2017 Menopausal: No : 4 Para: 2 Miscarriage: 2 Past Surgical History Appendectomy: Yes Social History Alcohol Use: No Tobacco Use: Yes (1 ppd) Substance Use: No (Denies) Allergies-Medications (Allergen,Severity, Reaction): Coded Allergies: Iodinated Contrast- Oral and IV Dye (Unverified Allergy, Severe, 07/21/17) baclofen (Unverified Allergy, Severe, HIVES, BLISTERS, VOMITING, 07/21/17) codeine (Unverified Allergy, Severe, 07/21/17) tramadol (Unverified Allergy, Severe, Hives, BLISTERS, 07/21/17) iodine (Unverified Allergy, Unknown, UNKNOWN REACTION, 07/21/17) penicillin G (Unverified Allergy, Unknown, UNKNOWN REACTION, 07/21/17) potassium iodide (Unverified Allergy, Unknown, UNKNOWN REACTION, 07/21/17) povidone-iodine (Unverified Allergy, Unknown, UNKNOWN REACTION, 07/21/17) sodium iodide (Unverified Allergy, Unknown, UNKNOWN REACTION, 07/21/17) sodium iodide (Unverified Allergy, Unknown, UNKNOWN REACTION, 07/21/17) Reported Meds & Prescriptions Reported Meds & Active Scripts Active Clonidine (Clonidine HCl) 0.1 Mg Tab 0.1 Mg PO Q12HR PRN Diclofenac Sodium DR (Diclofenac Sodium) 75 Mg Tabdr 75 Mg PO BID Robaxin (Methocarbamol) 500 Mg Tab 500 Mg PO QID 7 Days Ventolin Hfa 18 GM Inh (Albuterol Sulfate) 90 Mcg/Act Aer 2 Puff INH Q4-6H PRN Reported Atenolol-Chlorthalidone 50-25 Mg Tab 1 Tab PO DAILY Lorazepam 0.5 Mg Tab 0.5 Mg PO DAILY PRN Review of Systems Except as stated in HPI: all other systems reviewed are Neg Physical Exam Narrative GENERAL: Well-developed well-nourished female in no acute distress or respiratory distress SKIN: Warm and dry. HEAD: Normocephalic. Atraumatic EYES: No scleral icterus. No injection or drainage. No periorbital rim bony step-off soft tissue swelling noted to the right infraorbital cheek no zygomatic bony abnormality. ENT: Edentulous airway is patent no deformity. NECK: Supple, trachea midline. No JVD or lymphadenopathy. CARDIOVASCULAR: Regular rate and rhythm without murmurs, gallops, or rubs. RESPIRATORY: Breath sounds equal bilaterally. No accessory muscle use. GASTROINTESTINAL: Abdomen soft, non-tender, nondistended. MUSCULOSKELETAL: No cyanosis, or edema. BACK: Nontender without obvious deformity. No CVA tenderness. Data Data Last Documented VS Vital Signs Date Time Temp Pulse Resp B/P (MAP) Pulse Ox O2 Delivery O2 Flow Rate FiO2 07/21/17 02:59 80 16 121/75 (90) 97 Room Air 07/21/17 00:16 98.5 Orders Orders Clonidine (Catapres) (07/21/17 01:15) Ct Brain W/O Iv Contrast(Rout) (07/21/17 ) Ct Facial Bones W/O Iv Cont (07/21/17 ) Ct Cerv Spine W/O Contrast (07/21/17 ) Ed Discharge Order (07/21/17 03:18) MDM Medical Decision Making Medical Screen Exam Complete: Yes Emergency Medical Condition: Yes Medical Record Reviewed: Yes Interpretation(s) Last Impressions Head CT 07/21/17 0000 Signed Impressions: Service Date/Time: July 02:23 - CONCLUSION: 1. No acute intracranial abnormality. 2. Left sphenoid sinusitis. Peng Gregorio MD Vital Signs Date Time Temp Pulse Resp B/P (MAP) Pulse Ox O2 Delivery O2 Flow Rate FiO2 07/21/17 02:59 80 16 121/75 (90) 97 Room Air 07/21/17 00:16 98.5 102 18 208/131 (156) 98 CT facial: CONCLUSION: 1. No acute facial fracture. 2. Bilateral maxillary sinus mucosal disease and left sphenoid sinusitis. Peng Gregorio MD on July 21, 2017 at 3:11 Board Certified Radiologist. This report was verified electronically. CT cerv spine: CONCLUSION: 1. No acute fracture or subluxation. 2. Degenerative spondylosis of the cervical spine and multilevel facet arthropathy most prominent at C5-6 with posterior osteophytes resulting in asymmetric left central canal narrowing and moderate to severe left bony neural foraminal stenosis. 3. 1.3 cm nodule in the isthmus of the thyroid. Peng Gregorio MD on July 21, 2017 at 3:07 Board Certified Radiologist. This report was verified electronically. Differential Diagnosis Contusion fracture subluxation uncontrolled hypertension hypertensive urgency Narrative Course Patient with bruising consistent with subacute injury reports that she fell approximately 6 days patient has no significant soft tissue swelling or deformity but complains of pain with palpation about the face jaw neck and head. Patient reports possible loss of consciousness as she had brief period of blacking out and then seeing stars after falling and hitting her face/head. We will proceed with imaging studies patient with markedly elevated blood pressure and states not take her blood pressure medication. Patient administered clonidine Blood pressure was good response to antihypertensive imaging studies no acute bony abnormality sphenoidal sinus disease Patient informed of imaging results and stable for outpatient management and follow-up with her primary care provider Diagnosis Primary Impression: Facial contusion Qualified Codes: S00.83XA - Contusion of other part of head, initial encounter Additional Impressions: Sinusitis Qualified Codes: J32.3 - Chronic sphenoidal sinusitis HTN (hypertension) Qualified Codes: I10 - Essential (primary) hypertension Referrals: Primary Care Physician call for appointment Patient Instructions: General Instructions Additional Instructions: Increase fluid hydration Take your chronic medications as chronically prescribed May take clonidine 0.1 mg as often as every 12 hours as needed for blood pressure greater than 180/95 medication is only be taken on an as-needed basis and not on a routine basis Use [id number] Afrin decongestant spray for sinus congestion as needed per package directions avoid use for greater than 3 days to avoid rebound nasal/ sinus congestion Follow-up with your primary care provider call office in a.m. to schedule follow -up appointment May apply ice intermittently to right side of face for soft tissue discomfort and swelling. Return to the emergency department for any concerns or change in condition Med/Other Pt SpecificInfo: Prescription(s) given Scripts Clonidine (Clonidine) 0.1 Mg Tab 0.1 MG PO Q12HR Y for SBP>180, DBP>95, #3 TAB 0 Refills Prov: Eve Norton MD 07/21/17 Disposition: 01 DISCHARGE HOME Condition: Stable Eve Norton MD Jul 21, 2017 03:18
[2017-07-21] MEDS ORDERED: CLON0.1T PO (03:20)
== END 2017-07-21 03:58 | disposition home or self-care (01) ==
LOC: NEPC 00:10
DX: S00.83XA Contusion of other part of head, initial encounter (principal); J32.3 Chronic sphenoidal sinusitis; I10 Essential (primary) hypertension; F17.200 Nicotine dependence, unspecified, uncomplicated; W18.09XA Striking against other object with subsequent fall, initial encounter; Y92.89 Other specified places as the place of occurrence of the external cause
CPT/HCPCS: 70450; 70486; 72125; 99283